=== PATIENT | female | born 1990 | race Caucasian/White ===

== ENCOUNTER 2016-09-15 19:26 | Emergency (ER) | payer OTHER ==
[2016-09-15 19:32] VITALS: BP 147/90; BMI 36.6
--- NOTE | 2016-09-15 21:04 | DR.GENAD ---
HPI - PCP Primary Care Physician: KALE BARNETT - Complaint/Symptoms Chief Complaint Doctors Comments: Patient is seen frequently for migraine headache, always at night. In no acute distress. Chief Complaint:: PT C/O N/V HEADACHE AND DIZZINESS - Source History Provided: Patient - Mode of Arrival Mode of Arrival: Ambulatory - Timing Onset of Chief Complaint: 09/15/16 PMH - PMH Past Medical History: Yes Past Medical History: Anemia, Anxiety, Asthma, Depression, Diabetes, Migraines, Hypertension Past Surgical History: Yes Surgical History: , Cholecystectomy, TIE SAW[employer]ER Surgery, 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, Tonsillectomy - Family History History of Family Medical Conditions: Yes Family Medical History: Diabetes Mellitus, Hypertension - Social History Type of Tobacco Use: Cigarettes Does any household member use tobacco: No Alcohol Use: None Do you use any recreational Drugs:: No Lives With: Family Lives Where: Home - infectious screening In the last 2 months have you had wt loss of >10#?: NO Have you had fever, night sweats or hemotysis?: No Have you traveled outside the country in the last 6 months?: No Isolation: Standard ROS - Review of Systems Constitutional: No Symptoms Reported Eyes: No Symptoms Reported ENTM: No Symptoms Reported Respiratoy: No Symptoms Reported Cardiovascular: No Symptoms Reported Gastrointestinal/Abdominal: No Symptoms Reported Genitourinary: No Symptoms Reported Neurological: No Symptoms Reported Musculoskeletal: No Symptoms Reported Integumentary: No Symptoms Reported Hematologic/Lymphatic: No Symptoms Reported Endocrine: No Symptoms Reported Psychiatric: No Symptoms Reported All Other Systems: Reviewed and Negative PE - Vital Signs Vitals: Temperature 98.6 F Pulse Rate 91 Respiratory Rate 18 Blood Pressure [Right Arm] 105/65 Blood Pressure [Left Arm] 147/91 Blood Pressure 147/90 O2 Sat by Pulse Oximetry 100 - General Limitations: No Limitations General Appearance: Alert, In No Apparent Distress - Head Head Exam: Normal Inspection, Atraumatic - Eyes Eye exam: Normal Appearance, PERRL, EOMI - ENT ENT Exam: Normal Exam, Normal Oropharynx External Ear Exam: Normal External Inspection TM/Canal Exam: Bilateral Normal Nose Exam: Normal Nose Exam Mouth Exam: Normal Inspection Throat Exam: Normal Inspection - Neck Neck Exam: Normal Inspection - Chest Chest Inspection: Normal Inspection - Respiratory Respiratory Exam: Normal Lung Sounds Bilat Respiratory Exam: Bilateral Clear to Auscultation - Cardiovascular Cardiovascular Exam: Regular Rate, Normal Rhythm - Abdominal Exam Abdominal Exam: Normal Inspection Abdominal Tenderness: negative: RUQ, RLQ, LUQ, LLQ, Epigastrium, Suprapubic, Diffuse, Mild, Moderate, Severe, Other - Extremities Extremities Exam: Normal Inspection, Full ROM - Back Back Exam: Normal Inspection, Full ROM - Neurologic Neurological Exam: Alert, Oriented X3, CN II-XII Intact - Psychiatric Psychiatric Exam: Normal Affect, Normal Mood - Skin Skin Exam: Warm, Dry, Intact - Diagnosis Discharge Problem: Migraine Qualifiers: Migraine type: with aura Status migrainosus presence: without status migrainosus Intractability: not intractable Qualified Code(s): G43.109 - Migraine with aura, not intractable, without status migrainosus - Discharge Plan Condition: Stable - Follow ups/Referrals Follow ups/Referrals: KALE BARNETT [Primary Care Provider] - 3 days - Instructions Instructions: Nausea, Adult, Migraine Headache
[2016-09-15] MEDS ORDERED: NS 500 ML IV 500 ML IV ONE ×2 (21:06→21:16)
[2016-09-15] MEDS ORDERED: TORADOL 30 MG VIAL IVP ONE (21:06)
[2016-09-15] MEDS ORDERED: PHENERGAN INJ 25 MG IV ONE (21:06)
[2016-09-15] MEDS ORDERED: DECADRON INJ IV ONE (21:06)
[2016-09-15] MEDS ORDERED: NUBAIN INJ 10 IVP ONE (21:13)
[2016-09-15] MEDS ORDERED: NUBAIN INJ 10 ONE (21:15)
[2016-09-15] MEDS ORDERED: PHENERGAN INJ 25 MG ONE (21:15)
== END 2016-09-15 22:10 | disposition home or self-care (01) ==
LOC: ER 19:26
DX: G43.109 Migraine with aura, not intractable, without status migrainosus (principal)
CPT/HCPCS: 96365; 96374; 96375; 99282; 99283; A4222; J1100; J2300; J2550

== ENCOUNTER 2016-10-24 12:39 | Emergency (ER) | payer OTHER ==
[2016-10-24 12:49] VITALS: BP 141/97; BMI 37.8
[2016-10-24] MEDS ORDERED: REGLAN INJ 10 MG VIAL IVP STA (13:44)
[2016-10-24] MEDS ORDERED: BENADRYL INJ 50 MG VIAL IVP STA (13:44)
--- NOTE | 2016-10-24 13:49 | DR.GENAD ---
HPI - PCP Primary Care Physician: rodney - Complaint/Symptoms Chief Complaint Doctors Comments: Patient states she has had a migraine headache since earlier today and has been having lower abdominal pain with bloody diarrhea x4 today with diarrhea since yesterday. States she has a history of Chronn Disease and was in the hospital last year with same problem. States she has been having rectal burning from using the bathroom so much and blood when she wipes. She denies fever, chills, cold, cough, chest pain or SOB. States she smokes 1/2 pack daily and has had a hysterectomy. She denies alcohol or drug usage. States she took a Reglan about four hours ago and it did not help her headache. Chief Complaint:: patient stated at 4 am her head started hurting with a migraine, and 3 days ago her abd started hurting like it does when her chrones flares up. - Nurses notes reviewed Nurses Notes Review: Yes - Source History Provided: Patient - Mode of Arrival Mode of Arrival: Ambulatory - Timing Onset of Chief Complaint: 10/21/16 Came on: Gradually - Duration Duration: Constant How lon Duration: Days - Location Location: lower abdominal pain - Severity Severity: Moderate, Severe - Modifying Factors Worsens:: nothing Improves:: nothing PMH - PMH Past Medical History: Yes Past Medical History: Anemia, Anxiety, Asthma, Depression, Diabetes, Migraines, Hypertension Past Surgical History: Yes Surgical History: , Cholecystectomy, [employer] Surgery, 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, Tonsillectomy - Family History History of Family Medical Conditions: Yes Family Medical History: Diabetes Mellitus, Hypertension - Social History Does patient currently use any type of tobacco product: Yes Have you used tobacco products in the last 12 months: Yes Type of Tobacco Use: Cigarettes How many years tobacco product used: 15 Does any household member use tobacco: No Alcohol Use: None Do you use any recreational Drugs:: No Lives With: Family Lives Where: Home - infectious screening In the last 2 months have you had wt loss of >10#?: NO Have you had fever, night sweats or hemotysis?: No Have you traveled outside the country in the last 6 months?: No Isolation: Standard ROS - Review of Systems Constitutional: No Symptoms Reported Eyes: No Symptoms Reported ENTM: No Symptoms Reported Respiratoy: No Symptoms Reported Cardiovascular: No Symptoms Reported Gastrointestinal/Abdominal: Abdominal Pain, Diarrhea, Nausea Genitourinary: No Symptoms Reported. negative: See HPI, Discharge, Dysuria, Frequency, Hematuria, Pain, Bleeding, Other Neurological: No Symptoms Reported, Headache. negative: See HPI, Anxiety, Depressed, Emotional Problems, Numbness, Paresthesia, Pre-existing Deficit, Seizure, Tingling, Tremors, Weakness, Dizziness, Problems Walking, Speech Problem, Other Musculoskeletal: No Symptoms Reported Integumentary: No Symptoms Reported Hematologic/Lymphatic: No Symptoms Reported Endocrine: No Symptoms Reported Psychiatric: No Symptoms Reported PE - Vital Signs Vitals: Temperature 97.8 F Pulse Rate 120 Respiratory Rate 16 Blood Pressure [Right Arm] 105/65 Blood Pressure [Left Arm] 147/91 Blood Pressure 141/97 O2 Sat by Pulse Oximetry 97 - General Limitations: No Limitations General Appearance: Alert, In Distress (moderate distress) - Head Head Exam: Normal Inspection, Atraumatic, Normocephalic - Eyes Eye exam: Normal Appearance, PERRL, EOMI. negative: Scleral Icterus, Conjunctival Injection, Nystagmus, Miosis, Mydrasis, Periorbital Swelling, Periorbital Tenderness, Other - ENT ENT Exam: Normal Exam, Normal Oropharynx, Normal External Ear Exam, Mucous Membranes Moist, TM's Normal Bilaterally External Ear Exam: Normal External Inspection TM/Canal Exam: Bilateral Normal Nose Exam: Normal Nose Exam Mouth Exam: Normal Inspection Throat Exam: Normal Inspection. negative: Tonsillar Erythema, Tonsillomegaly, Tonsillar Exudate, R Peritonsillar Mass, L Peritonsillar Mass, Muffled Voice, Other - Neck Neck Exam: Normal Inspection, Full ROM, Trachea Midline. negative: Tenderness, Meningismus, Lymphadenopathy, Thyromegaly, Other - Chest Chest Inspection: Normal Inspection, Symmetric Chest Wall Rise - Respiratory Respiratory Exam: Normal Lung Sounds Bilat Respiratory Exam: Bilateral Clear to Auscultation - Cardiovascular Cardiovascular Exam: Regular Rate, Normal Rhythm, Normal Heart Sounds - Abdominal Exam Abdominal Exam: Normal Inspection, Normal Bowel Sounds, Soft, Tenderness, Guarding (suprapubic tendeness), Dimnished Bowel Sounds Abdominal Tenderness: Suprapubic, Moderate - Extremities Extremities Exam: Normal Inspection, Full ROM, Normal Capillary Refill. negative: Tenderness, Edema, Joint Swelling, Calf Tenderness, Other - Back Back Exam: Normal Inspection, Full ROM. negative: Tenderness, (R) CVA Tenderness, (L) CVA Tenderness, Muscle Spasm, Paraspinal Tenderness, Vertebral Tenderness, Rashes, (R) Sciatic Notch Tenderness, (L) Sciatic Notch Tendern, (R ) Straight Leg Raise, (L) Straight Leg Raise, Other - Neurologic Neurological Exam: Alert, Oriented X3, CN II-XII Intact, Reflexes Normal. negative: Normal Gait (gait not tested) - Psychiatric Psychiatric Exam: Normal Affect, Normal Mood. negative: Depressed, Agitated, Anxious, Flat Affect, Manic, Homicidal Ideation, Suicidal Ideation, Other - Skin Skin Exam: Warm, Dry, Intact, Normal Color ROR - Labs Reviewed Laboratory Results Reviewed?: Yes (all labs and x-ay results reviewed and discussed with patient) Result Diagrams: 10/24/16 13:53 10/24/16 13:53 Laboratory: WBC 6.8 X10^3/uL (3.6-10.0) 10/24/16 13:53 RBC 4.17 X10^6/uL (3.5-5.4) 10/24/16 13:53 Hgb 12.6 g/dL (12.0-16.0) 10/24/16 13:53 Hct 36.8 % (36.0-47.0) 10/24/16 13:53 MCV 88.3 fL (80.0-100.0) 10/24/16 13:53 MCH 30.3 pg (27.0-34.0) 10/24/16 13:53 MCHC 34.3 g/dL (33.0-35.0) 10/24/16 13:53 RDW 13.0 % (11.6-16.5) 10/24/16 13:53 Plt Count 275 X10^3/uL (150.0-450.0) 10/24/16 13:53 MPV 7.2 fL (7.4-11.0) L 10/24/16 13:53 Neut % 46.6 % (42.0-75.0) 10/24/16 13:53 Lymph % 41.8 % (21.0-51.0) 10/24/16 13:53 [place] % 9.3 % (0.0-13.0) 10/24/16 13:53 Eos % 1.9 % (0.9-2.9) 10/24/16 13:53 Baso % 0.4 % (0.2-1.0) 10/24/16 13:53 Neut # 3.2 x10^3/uL (2.2-4.8) 10/24/16 13:53 Lymph # 2.8 X10^3/uL (1.3-2.9) 10/24/16 13:53 [place] # 0.6 x10^3/uL (0.3-0.8) 10/24/16 13:53 Eos # 0.1 x10^3/uL (0.0-0.2) 10/24/16 13:53 Baso # 0.0 X10^3/uL (0.0-0.1) 10/24/16 13:53 Absolute Nucleated RBC 0.0 /100WBC 10/24/16 13:53 Sodium 145 mmol/L (136-145) 10/24/16 13:53 Corrected Sodium TNP 10/24/16 13:53 Potassium 3.6 mmol/L (3.5-5.1) 10/24/16 13:53 Chloride 108 mmol/L (98-107) H 10/24/16 13:53 Carbon Dioxide 31.7 mmol/L (21-32) 10/24/16 13:53 BUN 14 mg/dL (7-18) 10/24/16 13:53 Creatinine 0.92 mg/dL (0.55-1.02) 10/24/16 13:53 Est GFR (MDRD) Af Amer > 60 (>60) 10/24/16 13:53 Est GFR (MDRD) Non-Af > 60 (>60) 10/24/16 13:53 Glucose 95 mg/dL (65-99) 10/24/16 13:53 Calcium 8.7 mg/dL (8.5-10.1) 10/24/16 13:53 Corrected Calcium TNP 10/24/16 13:53 Total Bilirubin 0.30 mg/dL (0.2-1.0) 10/24/16 13:53 AST 60 Units/L (15-37) H 10/24/16 13:53 ALT 82 Units/L (12-78) H 10/24/16 13:53 Alkaline Phosphatase 74 Units/L (46-116) 10/24/16 13:53 Total Protein 7.7 g/dL (6.4-8.2) 10/24/16 13:53 Albumin 3.7 g/dL (3.4-5.0) 10/24/16 13:53 Globulin 4.0 g/dL (2.5-4.5) 10/24/16 13:53 Albumin/Globulin Ratio 0.9 Ratio (1.1-2.1) L 10/24/16 13:53 Amylase 44 Units/L (25-115) 10/24/16 13:53 Lipase 163 Units/L (73-393) 10/24/16 13:53 - XRAY XRAY Interpreted by: Radiologist (CT abdomen/pelvis: No evidence acute colitis, bowel obstruction, free air or enteritis. Diffuse hepatic steatosis) - Diagnosis Discharge Problem: Abdominal pain, Hepatic steatosis Crohn's disease Qualifiers: Gastrointestinal tract location: unspecified location Headache Qualifiers: Headache chronicity pattern: chronic headache - Discharge Plan Disposition: HOME, SELF-CARE Condition: Stable Prescriptions: Metronidazole [FLAGYL 500 MG *] 500 mg PO BID #14 tab Prednisone 40 mg PO QAM #5 tab - Follow ups/Referrals Follow ups/Referrals: KALE BARNETT [Primary Care Provider] - 3 days - Instructions Instructions: Crohn Disease, Abdominal Pain, Adult, [id number], General Headache Without Cause, [id number]
[2016-10-24 13:56] LABS: BASOPHILS % (AUTO) 0.4 % (0.2-1.0); EOSINOPHILS # (AUTO) 0.1 x10^3/uL (0.0-0.2); EOSINOPHILS % (AUTO) 1.9 % (0.9-2.9); HEMATOCRIT 36.8 % (36.0-47.0); HEMOGLOBIN 12.6 g/dL (12.0-16.0); LYMPHOCYTES # (AUTO) 2.8 X10^3/uL (1.3-2.9); LYMPHOCYTES % (AUTO) 41.8 % (21.0-51.0); MEAN CORPUSCULAR HEMOGLOBIN 30.3 pg (27.0-34.0); MEAN CORPUSCULAR HGB CONC 34.3 g/dL (33.0-35.0); MEAN CORPUSCULAR VOLUME 88.3 fL (80.0-100.0); MEAN PLATELET VOLUME 7.2 fL (7.4-11.0); MONOCYTES # (AUTO) 0.6 x10^3/uL (0.3-0.8); MONOCYTES % (AUTO) 9.3 % (0.0-13.0); NEUTROPHILS # (AUTO) 3.2 x10^3/uL (2.2-4.8); NEUTROPHILS % (AUTO) 46.6 % (42.0-75.0); PLATELET COUNT 275 X10^3/uL (150.0-450.0); RED BLOOD COUNT 4.17 X10^6/uL (3.5-5.4); WHITE BLOOD COUNT 6.8 X10^3/uL (3.6-10.0)
[2016-10-24] MEDS ORDERED: BENADRYL INJ 50 MG VIAL ONE (13:57)
[2016-10-24] MEDS ORDERED: REGLAN INJ 10 MG VIAL ONE (13:57)
[2016-10-24 14:08] LABS: ALANINE AMINOTRANSFERASE 82 Units/L (12-78); ALBUMIN 3.7 g/dL (3.4-5.0); ALKALINE PHOSPHATASE 74 Units/L (46-116); AMYLASE 44 Units/L (25-115); ASPARTATE AMINO TRANSFERASE 60 Units/L (15-37); BLOOD UREA NITROGEN 14 mg/dL (7-18); CALCIUM 8.7 mg/dL (8.5-10.1); CARBON DIOXIDE 31.7 mmol/L (21-32); CHLORIDE 108 mmol/L (98-107); CREATININE 0.92 mg/dL (0.55-1.02); GLUCOSE 95 mg/dL (65-99); LIPASE 163 Units/L (73-393); SODIUM 145 mmol/L (136-145); TOTAL PROTEIN 7.7 g/dL (6.4-8.2); eGFR BLACK RACES > 60 (>60); eGFR NON BLACK RACES > 60 (>60)
[2016-10-24] MEDS ORDERED: DEMEROL INJ IVP ONE (14:19)
[2016-10-24] MEDS ORDERED: ZOFRAN INJ 4 MG VIAL IVP ONE (14:19)
[2016-10-24] MEDS ORDERED: ZOFRAN INJ 4 MG VIAL ONE (14:20)
[2016-10-24] MEDS ORDERED: DEMEROL INJ ONE (14:20)
--- NOTE | 2016-10-24 14:38 | CT ---
History: Bloody diarrhea. History of Crohn's disease. Exam: Non-contrast CT examination of the abdomen \T\ pelvis. Technique: Multiple CT images of the abdomen and pelvis were obtained from the lung bases to the pub ic symphysis without the IV administration of radiopaque contrast. Findings: The lung bases are clear. The heart is normal in size without a pericardial effusion. The adrenal gl ands and spleen are unremarkable on these non contrasted images. There is no pneumoperitoneum or hem operitoneum seen. There is no bowel obstruction, large hernia defect, or acute mesenteric inflammato ry change. There is no evidence for an acute colitis, diverticulitis, or RLQ inflammatory stranding. No loculated intraperitoneal fluid collection is seen. Exam of the kidneys demonstrates no obstruct ing renal stones. No other renal, bladder, or abdominopelvic abnormalities are seen. No lytic bony l esions or acute fractures are seen. There is diffuse hepatic steatosis appreciated without liver abs cess observed. The patient is status post cholecystectomy. Impression: No convincing evidence for acute colitis, bowel obstruction, free air, or enteritis, although this e xamination is admittedly limited without the benefit of IV and oral contrast in this patient w/ Croh n's disease. Diffuse hepatic steatosis. Status post cholecystectomy. No acute mesenteric hematoma or inflammatory stranding is otherwise seen. No drainable fluid collection, bowel wall pneumatosis, po rtal venous gas, or free peritoneal air observed. Reported By:
== END 2016-10-24 15:21 | disposition home or self-care (01) ==
LOC: ER 12:51
DX: K50.90 Crohn's disease, unspecified, without complications (principal); E88.89 Other specified metabolic disorders; R10.84 Generalized abdominal pain; R51 Headache
CPT/HCPCS: 36415; 74176; 80053; 82150; 83690; 85025; 96365; 96374; 96375; 99283; A4216; A4222; J1200; J2175; J2405; J2765

== ENCOUNTER 2016-10-31 21:17 | Emergency (ER) | payer OTHER ==
[2016-10-31 21:29] VITALS: BMI 37.8
[2016-10-31] MEDS ORDERED: DEMEROL INJ IM ONE (21:48)
[2016-10-31] MEDS ORDERED: PHENERGAN INJ 25 MG IM ONE (21:48)
--- NOTE | 2016-10-31 21:54 | DR.GENAD ---
HPI - PCP Primary Care Physician: Kale Barnett - Complaint/Symptoms Chief Complaint Doctors Comments: Patient states she had oral surgery four days ago with two teeth removed and reguiring stitches by Dr. Sánchez in [place] and she is taking Motrin 800mg; Leonard 10/325 with Amoxicillin and steriods but it does not seem to control her pain after eating a hot dog tonight she felt a pop in her jaw with severe pain in the left side of her jaw. States she tried to get in touch with the oral surgeon two days ago but not since. she denies fever , chills, cold, cough, nausea or vomiting. States she has a history of Migraines and she comes to this emergency room and they usually give her Dilaudid, Demerol or Nubain. States she is allegic to Morphine and Toradol. States she has had a hysterectomy. Chief Complaint:: Had oral surgery on Wednesday and i was tring to eat a hotdog and heard something pop and a gush of pain ran down my neck. I had two back teeth cut out and i think he did some scrapping on the bone. Self Treatment fo Chief Complaint: 800mg motrin @2029. Leonard 10/325 @1999 - Nurses notes reviewed Nurses Notes Review: Yes - Source History Provided: Patient - Mode of Arrival Mode of Arrival: Ambulatory - Timing Onset of Chief Complaint: 10/31/16 Came on: Gradually - Duration Duration: Intermittent How lon Duration: Days - Modifying Factors Worsens:: chewing Improves:: nothing PMH - PMH Past Medical History: Yes Past Medical History: Anemia, Anxiety, Asthma, Depression, Diabetes, Migraines, Hypertension Past Surgical History: Yes Surgical History: , Cholecystectomy, [employer] Surgery, 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, Tonsillectomy - Family History History of Family Medical Conditions: Yes Family Medical History: Diabetes Mellitus, Hypertension - Social History Alcohol Use: None Do you use any recreational Drugs:: No Lives With: Family Lives Where: Home - infectious screening Have you traveled outside the country in the last 6 months?: No ROS - Review of Systems Constitutional: No Symptoms Reported Eyes: No Symptoms Reported ENTM: No Symptoms Reported, Mouth Pain Respiratoy: No Symptoms Reported. negative: See HPI, Productive Cough, Non- Productive Cough, Moist Cough, Dry Cough, Hacking Cough, Barking Cough, Brassy Cough, Orthopnea, Short of Breath, Stridor, Wheezing, Hemoptysis, Other Cardiovascular: No Symptoms Reported Gastrointestinal/Abdominal: No Symptoms Reported Genitourinary: No Symptoms Reported Neurological: No Symptoms Reported Musculoskeletal: No Symptoms Reported Integumentary: No Symptoms Reported Hematologic/Lymphatic: No Symptoms Reported Endocrine: No Symptoms Reported Psychiatric: No Symptoms Reported PE - Vital Signs Vitals: Temperature 98.7 F Pulse Rate 96 Respiratory Rate 18 Blood Pressure [Right Arm] 105/65 Blood Pressure [Left Arm] 147/91 Blood Pressure 159/102 O2 Sat by Pulse Oximetry 98 - General Limitations: No Limitations General Appearance: Alert, In Distress (slight stress) - Head Head Exam: Normal Inspection, Atraumatic, Normocephalic (left molar left bottom with suture intact with left upper molar with suture intact with no erythema or discharge) - Eyes Eye exam: Normal Appearance, PERRL, EOMI. negative: Scleral Icterus, Conjunctival Injection, Nystagmus, Miosis, Mydrasis, Periorbital Swelling, Periorbital Tenderness, Other - ENT ENT Exam: Normal Exam, Normal Oropharynx, Normal External Ear Exam, Mucous Membranes Moist, TM's Normal Bilaterally External Ear Exam: Normal External Inspection TM/Canal Exam: Bilateral Normal Nose Exam: Normal Nose Exam Mouth Exam: Normal Inspection Throat Exam: Normal Inspection - Neck Neck Exam: Normal Inspection, Full ROM, Trachea Midline. negative: Tenderness, Meningismus, Lymphadenopathy, Thyromegaly, Other - Chest Chest Inspection: Normal Inspection, Symmetric Chest Wall Rise. negative: Tenderness, Rash, Abscess, Other - Respiratory Respiratory Exam: Normal Lung Sounds Bilat Respiratory Exam: Bilateral Clear to Auscultation - Cardiovascular Cardiovascular Exam: Regular Rate, Normal Rhythm, Normal Heart Sounds. negative : Bradycardia, Tachycardia, Irregular Rhythm, Systolic Murmur, Diastolic Murmur , Rubs, Gallop, Clicks, JVD, +S1, +S2, +S3, +S4, Other - Abdominal Exam Abdominal Exam: Normal Inspection, Normal Bowel Sounds, Soft. negative: Distention, Tenderness, Guarding, Rebound, Rigidity, Dimnished Bowel Sounds, Hyperactive Bowel Sounds, Hypoactive Bowel Sounds, Organomegaly, Trauma, Incision, Ascites, Mass, Bruit, Pulsatile Mass, Hernia, Other Abdominal Tenderness: negative: RUQ, RLQ, LUQ, LLQ, Epigastrium, Suprapubic, Diffuse, Mild, Moderate, Severe, Other - Extremities Extremities Exam: Normal Inspection, Full ROM, Normal Capillary Refill. negative: Tenderness, Edema, Joint Swelling, Calf Tenderness, Other - Back Back Exam: Normal Inspection, Full ROM - Neurologic Neurological Exam: Alert, Oriented X3, CN II-XII Intact, Normal Gait, Reflexes Normal - Psychiatric Psychiatric Exam: Normal Affect, Normal Mood - Skin Skin Exam: Warm, Dry, Intact, Normal Color. negative: Rash, Cyanosis, Diaphoresis, Erythema, Pallor, Mottled, Other ROR - Labs Reviewed Laboratory Results Reviewed?: Yes (All x-ray results reviewed and discussed with patient) - XRAY XRAY Interpreted by: Radiologist (CT maxillofacial: Surgical defects from both left maxillary and mandibular moral extraction. No evidence of significant inflammatory change or abscess formation) - Diagnosis Discharge Problem: Pain, dental, dental extraction, Sprain of jaw, left side, initial encounter - Discharge Plan Disposition: 01 HOME, SELF-CARE Condition: Stable - Follow ups/Referrals Follow ups/Referrals: KALE BARNETT [Primary Care Provider] - 3 days - Instructions Instructions: Dental Pain, Dental Extraction, Care After, Hypertension
[2016-10-31] MEDS ORDERED: PHENERGAN INJ 25 MG ONE (21:57)
[2016-10-31] MEDS ORDERED: DEMEROL INJ ONE (21:57)
--- NOTE | 2016-10-31 22:33 | CT ---
STUDY: MAXILLOFACIAL CT History: Left jaw pain. Dental surgery on Wednesday. Comparison: Head CT from February 21, 2016. Technique: Multiple axial images of the facial structures were obtained from the mandible to superio r portions of the orbits. Coronal and sagittal reformatted images were performed and reviewed. Autom ated exposure control (AEC) was utilized to adjust the MA and/or kV. Findings: Axial images: Both orbits are normal appearance. There is no evidence of preseptal or postseptal periorbital soft tissue swelling. The paranasal sinuses are predominately clear bilaterally. The nasal bone is intact . The zygomaticomaxillary complexes are normal appearance bilaterally. The right orbit is intact. Th ere is a hit defect in the left maxillary alveolar ridge from 2nd left maxillary molar extraction. T here is an additional defect in the left mandible from left 2nd mandibular molar extraction. No sign ificant soft tissue abnormality is identified. There is no evidence of abscess formation or signific ant abnormal inflammatory change. There is a metallic foreign body in the tongue. Reformatted images: The ethmoid roofs are symmetric. The lamina papyracea appear intact bilaterally. There is no evidence of orbital blowout. The ostiomeatal units are predominately clear. Both temporomandibular joints are intact. IMPRESSION: Surgical defects from of both left maxillary and mandibular molar extraction. No evidence of signifi cant inflammatory change or abscess formation at this time. Reported By:
[2016-10-31] MEDS ORDERED: CATAPRES TAB 0.2 MG PO ONE (22:50)
[2016-10-31] MEDS ORDERED: CATAPRES TAB 0.2 MG ONE (22:52)
[2016-10-31 23:16] VITALS: BP 160/98
== END 2016-10-31 23:16 | disposition home or self-care (01) ==
LOC: ER 21:17
DX: S03.42XA Sprain of jaw, left side, initial encounter (principal); K08.89 Other specified disorders of teeth and supporting structures; K08.409 Partial loss of teeth, unspecified cause, unspecified class; Y33.XXXA Other specified events, undetermined intent, initial encounter; Y92.9 Unspecified place or not applicable
CPT/HCPCS: 70486; 96372; 99283; J2175; J2550

== ENCOUNTER 2016-12-21 18:25 | Emergency (ER) | payer SELFPAY ==
[2016-12-21 18:32] VITALS: BP 151/95; BMI 36.6
[2016-12-21] MEDS ORDERED: HALDOL INJ IM ONE (20:59)
--- NOTE | 2016-12-21 21:02 | DR.GENAD ---
HPI - PCP Primary Care Physician: Kale Cross - Complaint/Symptoms Chief Complaint:: "For about 2 days now I have been having a migraine and have been throwing up. I haven't been able to drink or eat anything without throwing up. I took 2 [place]'s last night and 1 a little earlier and it has not helped. I' m having blurriness as well." Self Treatment fo Chief Complaint: 2 [place] yesterday. 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, 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, Tonsillectomy - Family History History of Family Medical Conditions: Yes Family Medical History: Diabetes Mellitus, Hypertension - Social History Does patient currently use any type of tobacco product: No Have you used tobacco products in the last 12 months: No Type of Tobacco Use: Cigarettes Does any household member use tobacco: No Alcohol Use: None Do you use any recreational Drugs:: No Lives With: Family Lives Where: Home - infectious screening In the last 2 months have you had wt loss of >10#?: NO Have you had fever, night sweats or hemotysis?: No Have you traveled outside the country in the last 6 months?: No Isolation: Standard ROS - Review of Systems Constitutional: No Symptoms Reported Eyes: Photophobia ENTM: No Symptoms Reported Respiratoy: No Symptoms Reported Cardiovascular: No Symptoms Reported Gastrointestinal/Abdominal: Nausea Genitourinary: No Symptoms Reported Neurological: No Symptoms Reported Musculoskeletal: No Symptoms Reported Integumentary: No Symptoms Reported Hematologic/Lymphatic: No Symptoms Reported Endocrine: No Symptoms Reported Psychiatric: No Symptoms Reported All Other Systems: Reviewed and Negative PE - Vital Signs Vitals: Temperature 98.4 F Pulse Rate 133 Respiratory Rate 18 Blood Pressure [Right Arm] 105/65 Blood Pressure [Left Arm] 160/98 Blood Pressure 151/95 O2 Sat by Pulse Oximetry 96 - General Limitations: No Limitations General Appearance: Alert, In No Apparent Distress - Head Head Exam: Normal Inspection - Eyes Eye exam: Normal Appearance, EOMI. negative: Scleral Icterus, Conjunctival Injection - ENT ENT Exam: Normal Exam External Ear Exam: Normal External Inspection Mouth Exam: Normal Inspection Throat Exam: Normal Inspection, Tonsillar Erythema - Neck Neck Exam: Normal Inspection, Full ROM, Trachea Midline - Chest Chest Inspection: Normal Inspection, Symmetric Chest Wall Rise, Tenderness - Respiratory Respiratory Exam: Normal Lung Sounds Bilat. negative: Accessory Muscle Use, Respiratory Distress - Cardiovascular Cardiovascular Exam: Regular Rate - Back Back Exam: Normal Inspection - Neurologic Neurological Exam: Alert, Oriented X3, CN II-XII Intact - Psychiatric Psychiatric Exam: Normal Affect, Normal Mood, Depressed - Skin Skin Exam: Intact, Normal Color ROR - Labs Reviewed Laboratory: Specimen Type Clean catch urine 12/21/16 21:50 Urine Color Yellow (YELLOW) 12/21/16 21:50 Urine Appearance Slightly hazy (CLEAR) 12/21/16 21:50 Urine pH 6.0 (5.0 - 8.0) 12/21/16 21:50 Ur Specific Mosier 1.025 (1.000-1.030) 12/21/16 21:50 Urine Protein 1+ (NEGATIVE) 12/21/16 21:50 Urine Glucose (UA) Negative (NEGATIVE) 12/21/16 21:50 Urine Ketones Negative (NEGATIVE) 12/21/16 21:50 Urine Occult Blood Negative (NEGATIVE) 12/21/16 21:50 Urine Nitrite Negative (NEGATIVE) 12/21/16 21:50 Urine Bilirubin Negative (NEGATIVE) 12/21/16 21:50 Urine Urobilinogen Normal (NORMAL) 12/21/16 21:50 Ur Leukocyte Esterase Negative (NEGATIVE) 12/21/16 21:50 Urine RBC 0-3 /HPF (NEGATIVE) 12/21/16 21:50 Urine WBC 0-3 /HPF (NEGATIVE) 12/21/16 21:50 Ur Squamous Epith Cells Moderate /HPF (NEGATIVE) 12/21/16 21:50 Urine Bacteria Trace /HPF (NEGATIVE) 12/21/16 21:50 Urine Mucus Moderate /HPF (NEGATIVE) 12/21/16 21:50 Ur Culture Indicated? No/not indicated 12/21/16 21:50 Urine Opiates Screen Negative (NEG=<300) 12/21/16 21:50 Urine Methadone Screen Negative (NEG=<300) 12/21/16 21:50 Ur Barbiturates Screen Negative (NEG=<200) 12/21/16 21:50 Ur Phencyclidine Scrn Negative (NEG=<25) 12/21/16 21:50 Ur Amphetamines Screen Positive (NEG=<1000) A 12/21/16 21:50 U Benzodiazepines Scrn Positive (NEG=<200) A 12/21/16 21:50 Urine Cocaine Screen Negative (NEG=<300) 12/21/16 21:50 U Marijuana (THC) Screen Negative (NEG=<50) 12/21/16 21:50 - Diagnosis Discharge Problem: Headache Qualifiers: Headache type: unspecified Headache chronicity pattern: acute headache Intractability: not intractable Qualified Code(s): R51 - Headache - Discharge Plan Condition: Stable - Follow ups/Referrals Follow ups/Referrals: KALE BARNETT [Primary Care Provider] - 3 days - Instructions
[2016-12-21] MEDS ORDERED: ZOFRAN TAB 4 MG PO ONE (21:06)
[2016-12-21] MEDS ORDERED: HALDOL INJ ONE (21:11)
[2016-12-21] MEDS ORDERED: ZOFRAN TAB 4 MG ONE (21:11)
[2016-12-21] MEDS ORDERED: PHENERGAN INJ 25 MG IM ONE (21:22)
[2016-12-21] MEDS ORDERED: NUBAIN INJ 10 IM ONE (21:22)
[2016-12-21] MEDS ORDERED: NUBAIN INJ 10 ONE (21:31)
[2016-12-21] MEDS ORDERED: PHENERGAN INJ 25 MG ONE (21:31)
[2016-12-21 22:10] LABS: BILIRUBIN,URINE NEGATIVE (NEGATIVE); BLOOD/HEMOGLOBIN,URINE NEGATIVE (NEGATIVE); GLUCOSE, URINE NEGATIVE (NEGATIVE); KETONES,URINE NEGATIVE (NEGATIVE); LEUKOCYTE ESTERASE ,URINE NEGATIVE (NEGATIVE); NITRITES,URINE NEGATIVE (NEGATIVE); PROTEIN,URINE 1+ (NEGATIVE); UROBILINOGEN,URINE NORMAL (NORMAL)
[2016-12-21 22:19] LABS: APPEARANCE,URINE SLIGHTLY HAZY (CLEAR); BACTERIA,URINE TRACE /HPF (NEGATIVE); COLOR,URINE YELLOW (YELLOW); MUCUS,URINE MODERATE /HPF (NEGATIVE); RBC,URINE 0-3 /HPF (NEGATIVE); SQUAMOUS EPITHELIAL CELL,UR MODERATE /HPF (NEGATIVE)
== END 2016-12-21 22:28 | disposition home or self-care (01) ==
LOC: ER 18:37
DX: R51 Headache (principal)
CPT/HCPCS: 80307; 81001; 96372; 99282; S0181; G0434; J1630; J2300; J2550

== ENCOUNTER 2016-12-28 19:55 | Emergency (ER) | payer SELFPAY ==
[2016-12-28 20:01] VITALS: BP 157/95; BMI 36.6
--- NOTE | 2016-12-28 21:41 | DR.GENAD ---
HPI - PCP Primary Care Physician: KALE BARNETT - Complaint/Symptoms Chief Complaint Doctors Comments: Patient is a frequent visitor of the ED for migraine management. She is followed by a neurologit in [place]; she has a propensity of nubane. 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, 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, Tonsillectomy - Family History History of Family Medical Conditions: Yes Family Medical History: Diabetes Mellitus, Hypertension - Social History Type of Tobacco Use: Cigarettes Alcohol Use: None Do you use any recreational Drugs:: No Lives With: Family Lives Where: Home - infectious screening Have you traveled outside the country in the last 6 months?: No Isolation: Standard ROS - Review of Systems Eyes: No Symptoms Reported ENTM: No Symptoms Reported Respiratoy: No Symptoms Reported Cardiovascular: No Symptoms Reported Gastrointestinal/Abdominal: No Symptoms Reported Genitourinary: No Symptoms Reported Neurological: No Symptoms Reported Musculoskeletal: No Symptoms Reported Integumentary: No Symptoms Reported Hematologic/Lymphatic: No Symptoms Reported Endocrine: No Symptoms Reported Psychiatric: No Symptoms Reported All Other Systems: Reviewed and Negative PE - Vital Signs Vitals: Temperature 98.4 F Pulse Rate 100 Respiratory Rate 20 Blood Pressure [Right Arm] 105/65 Blood Pressure [Left Arm] 160/98 Blood Pressure 157/95 O2 Sat by Pulse Oximetry 99 - General General Appearance: Alert, In No Apparent Distress - Head Head Exam: Normal Inspection, Atraumatic - Eyes Eye exam: Normal Appearance, PERRL, EOMI - ENT ENT Exam: Normal Exam External Ear Exam: Normal External Inspection TM/Canal Exam: Bilateral Normal Nose Exam: Normal Nose Exam Mouth Exam: Normal Inspection Throat Exam: Normal Inspection - Neck Neck Exam: Normal Inspection - Chest Chest Inspection: Normal Inspection - Respiratory Respiratory Exam: Normal Lung Sounds Bilat Respiratory Exam: Bilateral Clear to Auscultation - Cardiovascular Cardiovascular Exam: Regular Rate, Normal Rhythm - Abdominal Exam Abdominal Exam: Normal Inspection, Normal Bowel Sounds Abdominal Tenderness: negative: RUQ, RLQ, LUQ, LLQ, Epigastrium, Suprapubic, Diffuse, Mild, Moderate, Severe, Other - Extremities Extremities Exam: Normal Inspection - Back Back Exam: Normal Inspection - Neurologic Neurological Exam: Alert, Oriented X3, CN II-XII Intact - Psychiatric Psychiatric Exam: Normal Affect - Skin Skin Exam: Warm, Dry, Intact Course - Reevaluation 1st: Improved - Diagnosis Discharge Problem: Migraine - Discharge Plan Condition: Stable - Follow ups/Referrals Follow ups/Referrals: KALE BARNETT [Primary Care Provider] - 3 days - Instructions
[2016-12-28] MEDS ORDERED: DECADRON INJ IM ONE (21:44)
[2016-12-28] MEDS ORDERED: ZOFRAN INJ 4 MG VIAL IVP ONE ×2 (21:47→22:00)
[2016-12-28] MEDS ORDERED: DECADRON INJ ONE (21:49)
[2016-12-28] MEDS ORDERED: ZOFRAN INJ 4 MG VIAL ONE (21:49)
[2016-12-28] MEDS ORDERED: DECADRON INJ IV ONE (21:50)
[2016-12-28] MEDS ORDERED: NS 500 ML IV 500 ML IV ONE (21:51)
[2016-12-28] MEDS ORDERED: NUBAIN INJ 10 IVP ONE (21:52)
[2016-12-28] MEDS ORDERED: NUBAIN INJ 10 ONE (22:00)
[2016-12-28] MEDS ORDERED: NS 1000 ML 1,000 ML ONE (22:00)
[2016-12-28 22:13] LABS: BILIRUBIN,URINE NEGATIVE (NEGATIVE); BLOOD/HEMOGLOBIN,URINE NEGATIVE (NEGATIVE); GLUCOSE, URINE NEGATIVE (NEGATIVE); KETONES,URINE NEGATIVE (NEGATIVE); LEUKOCYTE ESTERASE ,URINE NEGATIVE (NEGATIVE); NITRITES,URINE NEGATIVE (NEGATIVE); PROTEIN,URINE NEGATIVE (NEGATIVE); UROBILINOGEN,URINE NORMAL (NORMAL)
[2016-12-28 22:19] LABS: APPEARANCE,URINE CLEAR (CLEAR); COLOR,URINE YELLOW (YELLOW); RBC,URINE NONE SEEN /HPF (NEGATIVE)
[2016-12-28 22:20] LABS: BACTERIA,URINE TRACE /HPF (NEGATIVE); MUCUS,URINE MANY /HPF (NEGATIVE); SQUAMOUS EPITHELIAL CELL,UR RARE /HPF (NEGATIVE)
== END 2016-12-28 23:47 | disposition home or self-care (01) ==
LOC: ER 20:07
DX: G43.909 Migraine, unspecified, not intractable, without status migrainosus (principal)
CPT/HCPCS: 81001; 96365; 96374; 96375; 99283; A4222; J1100; J2300; J2405

== ENCOUNTER 2017-01-23 20:56 | Emergency (ER) | payer OTHER ==
[2017-01-23 21:04] VITALS: BMI 37.1
--- NOTE | 2017-01-23 21:54 | DR.HEADACH ---
HPI - Time Seen Time seen: 21:50 - Primary Care Physician Primary Care Physician: kate stevens - Complaint/Symptoms Chief Complaint Doctors Comments: Patient complains of a headache for the past three days with nausea with hot flashes with spells of weakness. Patient states she has been taking Tylenol #4 and phenergan but has been unable to keep it down lately. states she is a patient of Dr. Caldwell in [place] and he has her on multiple medicines including Elavil zantac, inderal, xanax, effexor, and adderall. States she is unsure the last time she had a CT of her head. She denies any recent truama. Chief Complaint:: "migraine for 3 days, n/v" Self Treatment fo Chief Complaint: tylenol with codeine, phenergan - Reviewed Nurses Notes Reviewed: Yes - Source History Provided: Patient - Mode of Arrival Mode of Arrival: Ambulatory - Timing Onset of Chief Complaint: 01/20/17 - Duration Since Onset: Constant How lon Duration: Days - Location Headache Location: Generalized, Occipital - Quality Quality: Sharp - Severity Headache Severity: Moderate, Like Previous Headaches - Context Headache Onset Circumstances: Spontaneous History of: Hypertension Prior Work Up: CT - Modifying Factors Improves With: Nothing Worsens: Nothing - Associated Signs and Symptoms Associated Symptoms: Nausea, Weakness, Nasal Congestion PMH - PMH Past Medical History: Yes Past Medical History: Anemia, Anxiety, Asthma, Depression, Diabetes, Migraines, Hypertension Past Surgical History: Yes Surgical History: , 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 negative: See HPI, Chills, Diaphoresis, Fever, Malaise, Weakness, Irritable, Fatigue, Loss of Appetite, Other Eyes: No Symptoms Reported ENTM: Nose Congestion Respiratoy: No Symptoms Reported. negative: See HPI, Productive Cough, Non- Productive Cough, Moist Cough, Dry Cough, Hacking Cough, Barking Cough, Brassy Cough, Orthopnea, Short of Breath, Stridor, Wheezing, Hemoptysis, Other Cardiovascular: No Symptoms Reported Gastrointestinal/Abdominal: No Symptoms Reported, Nausea, Vomiting Genitourinary: No Symptoms Reported. negative: See HPI, Discharge, Dysuria, Frequency, Hematuria, Pain, Bleeding, Other Neurological: No Symptoms Reported, Headache Musculoskeletal: No Symptoms Reported Integumentary: No Symptoms Reported Hematologic/Lymphatic: No Symptoms Reported Endocrine: No Symptoms Reported Psychiatric: No Symptoms Reported PE - Vital Signs Vitals: Temperature 98.7 F Pulse Rate [Right Brachial] 106 Pulse Rate 120 Respiratory Rate 16 Blood Pressure [Right Arm] 121/68 Blood Pressure [Left Arm] 160/98 Blood Pressure 163/102 O2 Sat by Pulse Oximetry 98 - General Limitations: No Limitations General Appearance: Alert, In No Apparent Distress - Head Head Exam: Normal Inspection, Atraumatic, Normocephalic - Eyes Eye exam: Normal Appearance, PERRL, EOMI. negative: Scleral Icterus, Conjunctival Injection, Nystagmus, Miosis, Mydrasis, Periorbital Swelling, Periorbital Tenderness, Other Eyelids: Normal Inspection: Bilateral Pupils: Regular, Round: Bilateral Sclera/Conjunctival: Normal Inspection: Bilateral - ENT ENT Exam: Normal Exam, Normal Oropharynx, Normal External Ear Exam, Mucous Membranes Moist, TM's Normal Bilaterally External Ear Exam: Normal External Inspection TM/Canal Exam: Bilateral Normal Nose Exam: Normal Nose Exam Mouth Exam: Normal Inspection Teeth Exam: Normal Inspection Throat Exam: Normal Inspection - Neck Neck Exam: Normal Inspection - Chest Chest Inspection: Normal Inspection, Symmetric Chest Wall Rise - Respiratory Respiratory Exam: Normal Lung Sounds Bilat Respiratory Exam: Bilateral Clear to Auscultation - Cardiovascular Cardiovascular Exam: Regular Rate, Normal Rhythm, Normal Heart Sounds - Abdominal Exam Abdominal Exam: Normal Inspection, Normal Bowel Sounds, Soft Abdominal Tenderness: negative: RUQ, RLQ, LUQ, LLQ, Epigastrium, Suprapubic, Diffuse, Mild, Moderate, Severe, Other - Extremities Extremities Exam: Normal Inspection, Full ROM, Normal Capillary Refill. negative: Tenderness, Edema, Joint Swelling, Calf Tenderness, Other - Back Back Exam: Normal Inspection, Full ROM - Neurologic Neurological Exam: Alert, Oriented X3, CN II-XII Intact, Reflexes Normal. negative: Motor Sensory Deficit - Psychiatric Psychiatric Exam: Normal Affect, Normal Mood. negative: Depressed, Agitated, Anxious, Flat Affect, Manic, Homicidal Ideation, Suicidal Ideation, Other - Skin Skin Exam: Warm, Dry, Intact, Normal Color ROR - Labs Reviewed Laboratory Results Reviewed?: Yes (all labs and x-ray results reviewed and discussed with patient) Result Diagrams: 01/23/17 22:10 01/23/17 22:10 Laboratory: WBC 7.6 X10^3/uL (3.6-10.0) 01/23/17 22:10 RBC 4.37 X10^6/uL (3.5-5.4) 01/23/17 22:10 Hgb 13.1 g/dL (12.0-16.0) 01/23/17 22:10 Hct 38.5 % (36.0-47.0) 01/23/17 22:10 MCV 88.2 fL (80.0-100.0) 01/23/17 22:10 MCH 30.1 pg (27.0-34.0) 01/23/17 22:10 MCHC 34.1 g/dL (33.0-35.0) 01/23/17 22:10 RDW 13.0 % (11.6-16.5) 01/23/17 22:10 Plt Count 305 X10^3/uL (150.0-450.0) 01/23/17 22:10 MPV 7.9 fL (7.4-11.0) 01/23/17 22:10 Neut % 40.9 % (42.0-75.0) L 01/23/17 22:10 Lymph % 44.7 % (21.0-51.0) 01/23/17 22:10 Brooks % 10.3 % (0.0-13.0) 01/23/17 22:10 Eos % 3.7 % (0.9-2.9) H 01/23/17 22:10 Baso % 0.4 % (0.2-1.0) 01/23/17 22:10 Neut # 3.1 x10^3/uL (2.2-4.8) 01/23/17 22:10 Lymph # 3.4 X10^3/uL (1.3-2.9) H 01/23/17 22:10 Brooks # 0.8 x10^3/uL (0.3-0.8) 01/23/17 22:10 Eos # 0.3 x10^3/uL (0.0-0.2) H 01/23/17 22:10 Baso # 0.0 X10^3/uL (0.0-0.1) 01/23/17 22:10 Absolute Nucleated RBC 0.1 /100WBC 01/23/17 22:10 Sodium 144 mmol/L (136-145) 01/23/17 22:10 Corrected Sodium TNP 01/23/17 22:10 Potassium 3.4 mmol/L (3.5-5.1) L 01/23/17 22:10 Chloride 105 mmol/L (98-107) 01/23/17 22:10 Carbon Dioxide 32.9 mmol/L (21-32) H 01/23/17 22:10 BUN 18 mg/dL (7-18) 01/23/17 22:10 Creatinine 1.10 mg/dL (0.55-1.02) H 01/23/17 22:10 Est GFR (MDRD) Af Amer > 60 (>60) 01/23/17 22:10 Est GFR (MDRD) Non-Af > 60 (>60) 01/23/17 22:10 Glucose 83 mg/dL (65-99) 01/23/17 22:10 Calcium 9.0 mg/dL (8.5-10.1) 01/23/17 22:10 Corrected Calcium TNP 01/23/17 22:10 Total Bilirubin 0.20 mg/dL (0.2-1.0) 01/23/17 22:10 AST 50 Units/L (15-37) H 01/23/17 22:10 ALT 99 Units/L (12-78) H 01/23/17 22:10 Alkaline Phosphatase 87 Units/L (46-116) 01/23/17 22:10 Total Protein 8.0 g/dL (6.4-8.2) 01/23/17 22:10 Albumin 4.0 g/dL (3.4-5.0) 01/23/17 22:10 Globulin 4.0 g/dL (2.5-4.5) 01/23/17 22:10 Albumin/Globulin Ratio 1.0 Ratio (1.1-2.1) L 01/23/17 22:10 - XRAY XRAY Interpreted by: Radiologist (CT head: NO acute intracranial proces identified.) - Diagnosis Discharge Problem: Hypokalemia Headache Qualifiers: Headache chronicity pattern: chronic headache - Discharge Plan Disposition: 01 HOME, SELF-CARE Condition: Stable Prescriptions: Potassium Chloride [K-DUR TAB 20 mEq *] 20 meq PO DAILY #5 tab - Follow ups/Referrals Follow ups/Referrals: NFD,None [Primary Care Provider] - 3 days - Instructions Instructions: Migraine Headache, [id number], Hypokalemia
[2017-01-23] MEDS ORDERED: REGLAN INJ 10 MG VIAL IM STA (21:56)
[2017-01-23] MEDS ORDERED: ZOFRAN INJ 4 MG VIAL IM ONE (21:58)
[2017-01-23] MEDS ORDERED: CATAPRES TAB 0.1 MG PO ONE (21:59)
[2017-01-23] MEDS ORDERED: NORCO 10/325 TAB PO ONE (22:01)
[2017-01-23] MEDS ORDERED: REGLAN INJ 10 MG VIAL ONE (22:04)
[2017-01-23] MEDS ORDERED: ZOFRAN INJ 4 MG VIAL ONE (22:04)
[2017-01-23] MEDS ORDERED: NORCO 10/325 TAB ONE (22:05)
[2017-01-23 22:11] VITALS: BP 121/68
--- NOTE | 2017-01-23 22:41 | CT ---
HISTORY: Headache. Study: CT brain without contrast Comparison: 08/03/2015 Technique: Multiple axial images of the brain were obtained from the skull base to the vertex without administr ation of IV contrast. Automated exposure control (AEC) was utilized to adjust the MA and/or kV accor ding to patient size. Findings: There is no acute intracranial hemorrhage. The brain parenchyma is normal in density. No mass or m ass effect. No abnormal extra-axial fluid collection. The ventricles are normal in size, shape and position. Basilar cisterns patent. Escalante matter -white matter interface is distinct. The bilateral mastoid air cells and included paranasal sinuses are predominantly clear. There is no acute osseous abnormality. IMPRESSION: 1. No acute intracranial process can be identified. Reported By:
[2017-01-23 22:43] LABS: BASOPHILS % (AUTO) 0.4 % (0.2-1.0); EOSINOPHILS # (AUTO) 0.3 x10^3/uL (0.0-0.2); EOSINOPHILS % (AUTO) 3.7 % (0.9-2.9); HEMATOCRIT 38.5 % (36.0-47.0); HEMOGLOBIN 13.1 g/dL (12.0-16.0); LYMPHOCYTES # (AUTO) 3.4 X10^3/uL (1.3-2.9); LYMPHOCYTES % (AUTO) 44.7 % (21.0-51.0); MEAN CORPUSCULAR HEMOGLOBIN 30.1 pg (27.0-34.0); MEAN CORPUSCULAR HGB CONC 34.1 g/dL (33.0-35.0); MEAN CORPUSCULAR VOLUME 88.2 fL (80.0-100.0); MEAN PLATELET VOLUME 7.9 fL (7.4-11.0); MONOCYTES # (AUTO) 0.8 x10^3/uL (0.3-0.8); MONOCYTES % (AUTO) 10.3 % (0.0-13.0); NEUTROPHILS # (AUTO) 3.1 x10^3/uL (2.2-4.8); NEUTROPHILS % (AUTO) 40.9 % (42.0-75.0); PLATELET COUNT 305 X10^3/uL (150.0-450.0); RED BLOOD COUNT 4.37 X10^6/uL (3.5-5.4); WHITE BLOOD COUNT 7.6 X10^3/uL (3.6-10.0)
[2017-01-23 22:51] LABS: ALANINE AMINOTRANSFERASE 99 Units/L (12-78); ALKALINE PHOSPHATASE 87 Units/L (46-116); ASPARTATE AMINO TRANSFERASE 50 Units/L (15-37); BLOOD UREA NITROGEN 18 mg/dL (7-18); CARBON DIOXIDE 32.9 mmol/L (21-32); CHLORIDE 105 mmol/L (98-107); GLUCOSE 83 mg/dL (65-99); SODIUM 144 mmol/L (136-145); eGFR BLACK RACES > 60 (>60); eGFR NON BLACK RACES > 60 (>60)
[2017-01-23] MEDS ORDERED: NUBAIN INJ 10 IM ONE (23:16)
[2017-01-23] MEDS ORDERED: NUBAIN INJ 10 ONE (23:21)
== END 2017-01-23 23:41 | disposition home or self-care (01) ==
LOC: ER 20:56
DX: E87.6 Hypokalemia (principal); R51 Headache
CPT/HCPCS: 36415; 70450; 80053; 85025; 96372; 99283; J2300; J2405; J2765

== ENCOUNTER 2017-01-29 05:22 | Emergency (ER) | payer OTHER ==
[2017-01-29 05:31] VITALS: BMI 37.1
[2017-01-29] MEDS ORDERED: CATAPRES TAB 0.2 MG ONE (06:39)
[2017-01-29] MEDS ORDERED: CATAPRES TAB 0.2 MG PO ONE (06:42)
--- NOTE | 2017-01-29 06:42 | DR.GENAD ---
HPI - PCP Primary Care Physician: ANIBAL - HPI Comment HPI Comment: Pt was in the room with Mr. Armas and subsequently checked herself into ED. She c.o migraine headache for 4 days with nausea and vomiting. Her BP is also elevated. She has vomited several times this am.She denies fever and chills.'She rate migraine at 9/10. - Complaint/Symptoms Chief Complaint Doctors Comments: Headache for 4 days. Chief Complaint:: MIGRAINE CLARK X 5 DAYS [place] Self Treatment fo Chief Complaint: TYLENOL #4 AND PHENERGAN - Nurses notes reviewed Nurses Notes Review: Yes - Source History Provided: Patient - Mode of Arrival Mode of Arrival: Ambulatory - Timing Onset of Chief Complaint: 01/25/17 Came on: Gradually - Duration Duration: Intermittent How lon Duration: Days - Location Location: "all over my head" - Severity Severity: Severe - Associated Signs and Symptoms Associated Signs and Symptoms: nausea and vomiting <MICA MOONEY - Last Filed: 01/29/17 06:38> PMH - PMH Past Medical History: Yes Past Medical History: Anemia, Anxiety, Asthma, Depression, Diabetes, Migraines, Hypertension Past Surgical History: Yes Surgical History: , Cholecystectomy, [employer] Surgery, 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, Tonsillectomy - Family History History of Family Medical Conditions: Yes Family Medical History: Diabetes Mellitus, Hypertension - Social History Does patient currently use any type of tobacco product: Yes Have you used tobacco products in the last 12 months: Yes Type of Tobacco Use: Cigarettes Does any household member use tobacco: Yes Alcohol Use: None Do you use any recreational Drugs:: No Lives With: Significant Other Lives Where: Home - infectious screening In the last 2 months have you had wt loss of >10#?: NO Have you had fever, night sweats or hemotysis?: No Have you traveled outside the country in the last 6 months?: No Isolation: Standard <MICA MOONEY - Last Filed: 01/29/17 06:38> ROS - Review of Systems Constitutional: No Symptoms Reported Eyes: No Symptoms Reported ENTM: No Symptoms Reported Respiratoy: No Symptoms Reported Cardiovascular: No Symptoms Reported Gastrointestinal/Abdominal: No Symptoms Reported, Nausea, Vomiting Genitourinary: No Symptoms Reported Neurological: Headache Musculoskeletal: No Symptoms Reported Integumentary: No Symptoms Reported Hematologic/Lymphatic: No Symptoms Reported Endocrine: No Symptoms Reported Psychiatric: No Symptoms Reported All Other Systems: Reviewed and Negative <MICA MOONEY - Last Filed: 01/29/17 06:38> PE - General Limitations: No Limitations General Appearance: Alert, In No Apparent Distress - Head Head Exam: Normal Inspection - Eyes Eye exam: Normal Appearance - Neck Neck Exam: Normal Inspection, Full ROM, Trachea Midline - Chest Chest Inspection: Normal Inspection, Symmetric Chest Wall Rise - Respiratory Respiratory Exam: Normal Lung Sounds Bilat Respiratory Exam: Bilateral Clear to Auscultation - Cardiovascular Cardiovascular Exam: Regular Rate, Normal Rhythm, Normal Heart Sounds - Abdominal Exam Abdominal Exam: Normal Inspection, Normal Bowel Sounds, Soft - Back Back Exam: Normal Inspection, Full ROM - Neurologic Neurological Exam: Alert, Oriented X3, CN II-XII Intact - Psychiatric Psychiatric Exam: Normal Affect, Normal Mood - Skin Skin Exam: Warm, Dry, Intact, Normal Color <MICA MOONEY - Last Filed: 01/29/17 06:38> MDM - Differential Diagnosis Differential Diagnosis: migraine, tension headache , uncontrolled hypertension <MICA MOONEY - Last Filed: 01/29/17 06:38> Course - Treatment Treatment: MEDS FOR HEADACHE AND HTN IN ED. HEADACHE STILL PRESENT. SLIGHTLY IMPROVE. BP NORMAL CURRENTLY IN ED. - Education/Counseling Education/Counseling: Patient, Education Educated On: Treatment, Diagnosis, Needs for Follow Up <JAVED RODRIGUES - Last Filed: 01/29/17 13:03> ROR - Labs Reviewed Result Diagrams: 01/29/17 07:18 01/29/17 07:18 <JAVED RODRIGUES - Last Filed: 01/29/17 13:03> - Labs Reviewed Laboratory: WBC 7.9 X10^3/uL (3.6-10.0) 01/29/17 07:18 RBC 4.52 X10^6/uL (3.5-5.4) 01/29/17 07:18 Hgb 14.0 g/dL (12.0-16.0) 01/29/17 07:18 Hct 39.7 % (36.0-47.0) 01/29/17 07:18 MCV 87.8 fL (80.0-100.0) 01/29/17 07:18 MCH 31.0 pg (27.0-34.0) 01/29/17 07:18 MCHC 35.3 g/dL (33.0-35.0) H 01/29/17 07:18 RDW 12.8 % (11.6-16.5) 01/29/17 07:18 Plt Count 287 X10^3/uL (150.0-450.0) 01/29/17 07:18 MPV 7.7 fL (7.4-11.0) 01/29/17 07:18 Neut % 49.3 % (42.0-75.0) 01/29/17 07:18 Lymph % 39.1 % (21.0-51.0) 01/29/17 07:18 [place] % 8.2 % (0.0-13.0) 01/29/17 07:18 Eos % 2.7 % (0.9-2.9) 01/29/17 07:18 Baso % 0.7 % (0.2-1.0) 01/29/17 07:18 Neut # 3.9 x10^3/uL (2.2-4.8) 01/29/17 07:18 Lymph # 3.1 X10^3/uL (1.3-2.9) H 01/29/17 07:18 [place] # 0.6 x10^3/uL (0.3-0.8) 01/29/17 07:18 Eos # 0.2 x10^3/uL (0.0-0.2) 01/29/17 07:18 Baso # 0.1 X10^3/uL (0.0-0.1) 01/29/17 07:18 Absolute Nucleated RBC 0.1 /100WBC 01/29/17 07:18 Sodium 141 mmol/L (136-145) 01/29/17 07:18 Corrected Sodium TNP 01/29/17 07:18 Potassium 4.1 mmol/L (3.5-5.1) 01/29/17 07:18 Chloride 105 mmol/L (98-107) 01/29/17 07:18 Carbon Dioxide 29.2 mmol/L (21-32) 01/29/17 07:18 BUN 14 mg/dL (7-18) 01/29/17 07:18 Creatinine 0.83 mg/dL (0.55-1.02) 01/29/17 07:18 Est GFR (MDRD) Af Amer > 60 (>60) 01/29/17 07:18 Est GFR (MDRD) Non-Af > 60 (>60) 01/29/17 07:18 Glucose 105 mg/dL (65-99) H 01/29/17 07:18 Calcium 8.8 mg/dL (8.5-10.1) 01/29/17 07:18 Corrected Calcium TNP 01/29/17 07:18 Total Bilirubin 0.20 mg/dL (0.2-1.0) 01/29/17 07:18 AST 52 Units/L (15-37) H 01/29/17 07:18 ALT 110 Units/L (12-78) H 01/29/17 07:18 Alkaline Phosphatase 96 Units/L (46-116) 01/29/17 07:18 Total Protein 8.4 g/dL (6.4-8.2) H 01/29/17 07:18 Albumin 4.0 g/dL (3.4-5.0) 01/29/17 07:18 Globulin 4.4 g/dL (2.5-4.5) 01/29/17 07:18 Albumin/Globulin Ratio 0.9 Ratio (1.1-2.1) L 01/29/17 07:18 Amylase 63 Units/L (25-115) 01/29/17 07:18 Specimen Type Clean catch urine 01/29/17 08:02 Urine Color Pale yellow (YELLOW) 01/29/17 08:02 Urine Appearance Clear (CLEAR) 01/29/17 08:02 Urine pH 7.0 (5.0 - 8.0) 01/29/17 08:02 Ur Specific [place] 1.010 (1.000-1.030) 01/29/17 08:02 Urine Protein Negative (NEGATIVE) 01/29/17 08:02 Urine Glucose (UA) Negative (NEGATIVE) 01/29/17 08:02 Urine Ketones Negative (NEGATIVE) 01/29/17 08:02 Urine Occult Blood 1+ (NEGATIVE) 01/29/17 08:02 Urine Nitrite Negative (NEGATIVE) 01/29/17 08:02 Urine Bilirubin Negative (NEGATIVE) 01/29/17 08:02 Urine Urobilinogen Normal (NORMAL) 01/29/17 08:02 Ur Leukocyte Esterase 1+ (NEGATIVE) 01/29/17 08:02 Urine RBC Rare /HPF (NEGATIVE) 01/29/17 08:02 Urine WBC 0-2 /HPF (NEGATIVE) 01/29/17 08:02 Ur Squamous Epith Cells Numerous /HPF (NEGATIVE) 01/29/17 08:02 Urine Bacteria Trace /HPF (NEGATIVE) 01/29/17 08:02 Ur Culture Indicated? No/not indicated 01/29/17 08:02 Urine Opiates Screen Negative (NEG=<300) 01/29/17 08:02 Urine Methadone Screen Negative (NEG=<300) 01/29/17 08:02 Ur Barbiturates Screen Negative (NEG=<200) 01/29/17 08:02 Ur Phencyclidine Scrn Negative (NEG=<25) 01/29/17 08:02 Ur Amphetamines Screen Positive (NEG=<1000) A 01/29/17 08:02 U Benzodiazepines Scrn Negative (NEG=<200) 01/29/17 08:02 Urine Cocaine Screen Negative (NEG=<300) 01/29/17 08:02 U Marijuana (THC) Screen Negative (NEG=<50) 01/29/17 08:02 (JAVED RODRIGUES) <MICA MOONEY - Last Filed: 01/29/17 06:38> <JAVED RODRIGUES - Last Filed: 01/29/17 13:03> - Diagnosis Discharge Problem: Hypertensive urgency Migraine Qualifiers: Migraine type: without aura Status migrainosus presence: without status migrainosus Intractability: not intractable Qualified Code(s): G43.009 - Migraine without aura, not intractable, without status migrainosus - Discharge Plan Disposition: 01 HOME, SELF-CARE Condition: Stable Prescriptions: [id number] [Fioricet Tab] 1 tab PO Q8H PRN #20 tab PRN Reason: Migraine Headache Ondansetron HCl [Zofran Tab 4 mg] 4 mg PO Q8H PRN 12 Days PRN Reason: Nausea/Vomiting - Follow ups/Referrals Follow ups/Referrals: KALE BARNETT [Primary Care Provider] - 3 days - Instructions Instructions: Hypertension, [id number], Managing Your High Blood Pressure, Nausea, Adult, Recurrent Migraine Headache, [id number], Migraine Headache, [id number] Additional Instructions: RETURN TO ED IF WORSE.
[2017-01-29] MEDS ORDERED: ZOFRAN INJ 4 MG VIAL IM ONE (06:52)
[2017-01-29] MEDS ORDERED: THORAZINE INJ 25 MG AMP IM ONE (06:52)
[2017-01-29] MEDS ORDERED: THORAZINE INJ 25 MG AMP ONE (06:58)
[2017-01-29] MEDS ORDERED: ZOFRAN INJ 4 MG VIAL ONE (07:12)
[2017-01-29 07:29] LABS: BASOPHILS # (AUTO) 0.1 X10^3/uL (0.0-0.1); BASOPHILS % (AUTO) 0.7 % (0.2-1.0); EOSINOPHILS # (AUTO) 0.2 x10^3/uL (0.0-0.2); EOSINOPHILS % (AUTO) 2.7 % (0.9-2.9); HEMATOCRIT 39.7 % (36.0-47.0); LYMPHOCYTES # (AUTO) 3.1 X10^3/uL (1.3-2.9); LYMPHOCYTES % (AUTO) 39.1 % (21.0-51.0); MEAN CORPUSCULAR HGB CONC 35.3 g/dL (33.0-35.0); MEAN CORPUSCULAR VOLUME 87.8 fL (80.0-100.0); MEAN PLATELET VOLUME 7.7 fL (7.4-11.0); MONOCYTES # (AUTO) 0.6 x10^3/uL (0.3-0.8); MONOCYTES % (AUTO) 8.2 % (0.0-13.0); NEUTROPHILS # (AUTO) 3.9 x10^3/uL (2.2-4.8); NEUTROPHILS % (AUTO) 49.3 % (42.0-75.0); PLATELET COUNT 287 X10^3/uL (150.0-450.0); RED BLOOD COUNT 4.52 X10^6/uL (3.5-5.4); RED CELL DISTRIBUTION WIDTH 12.8 % (11.6-16.5); WHITE BLOOD COUNT 7.9 X10^3/uL (3.6-10.0)
[2017-01-29 07:38] LABS: ALANINE AMINOTRANSFERASE 110 Units/L (12-78); ALKALINE PHOSPHATASE 96 Units/L (46-116); AMYLASE 63 Units/L (25-115); ASPARTATE AMINO TRANSFERASE 52 Units/L (15-37); BLOOD UREA NITROGEN 14 mg/dL (7-18); CALCIUM 8.8 mg/dL (8.5-10.1); CARBON DIOXIDE 29.2 mmol/L (21-32); CHLORIDE 105 mmol/L (98-107); CREATININE 0.83 mg/dL (0.55-1.02); SODIUM 141 mmol/L (136-145); TOTAL PROTEIN 8.4 g/dL (6.4-8.2); eGFR BLACK RACES > 60 (>60); eGFR NON BLACK RACES > 60 (>60)
[2017-01-29 07:39] LABS: GLUCOSE 105 mg/dL (65-99)
[2017-01-29] MEDS ORDERED: LR 1000 ML IV 1,000 ML IV ONE ×2 (07:44→08:08)
[2017-01-29 08:12] LABS: BILIRUBIN,URINE NEGATIVE (NEGATIVE); BLOOD/HEMOGLOBIN,URINE 1+ (NEGATIVE); GLUCOSE, URINE NEGATIVE (NEGATIVE); KETONES,URINE NEGATIVE (NEGATIVE); LEUKOCYTE ESTERASE ,URINE 1+ (NEGATIVE); NITRITES,URINE NEGATIVE (NEGATIVE); PROTEIN,URINE NEGATIVE (NEGATIVE); UROBILINOGEN,URINE NORMAL (NORMAL)
[2017-01-29 08:25] LABS: APPEARANCE,URINE CLEAR (CLEAR); BACTERIA,URINE TRACE /HPF (NEGATIVE); COLOR,URINE PALE YELLOW (YELLOW); RBC,URINE RARE /HPF (NEGATIVE); SQUAMOUS EPITHELIAL CELL,UR NUMEROUS /HPF (NEGATIVE)
[2017-01-29] MEDS ORDERED: PHENERGAN INJ 25 MG IV ONE (08:27)
[2017-01-29] MEDS ORDERED: DECADRON INJ IV ONE (08:27)
[2017-01-29] MEDS ORDERED: DECADRON INJ ONE (08:32)
[2017-01-29] MEDS ORDERED: PHENERGAN INJ 25 MG ONE (08:32)
[2017-01-29] MEDS ORDERED: NORCO 10/325 TAB PO ONE (09:31)
[2017-01-29] MEDS ORDERED: NORCO 10/325 TAB ONE (09:33)
[2017-01-29 10:17] VITALS: BP 133/85
== END 2017-01-29 10:23 | disposition home or self-care (01) ==
LOC: ER 05:22
DX: G43.009 Migraine without aura, not intractable, without status migrainosus (principal); I16.0 Hypertensive urgency
CPT/HCPCS: 36415; 80053; 80307; 81001; 82150; 85025; 96365; 96367; 96372; 96374; 96375; 99283; G0434; J1100; J2405; J2550; J3230; J7120

== ENCOUNTER 2017-01-29 20:24 | Emergency (ER) | payer OTHER ==
[2017-01-29 20:36] VITALS: BP 147/83; BMI 37.1
--- NOTE | 2017-01-29 21:49 | DR.GENAD ---
HPI - PCP Primary Care Physician: KALE BARNETT - Complaint/Symptoms Chief Complaint Doctors Comments: Patient complains of persistent headache. States she was in the emergency room earlier and was given medicines but she is still nauseated and still has a severe headache and cannot get any rest. States this is not the worst headache but it has been lasting a little longer than usual. Patient in emergency room last week saying the same thing. She denies dizziness, syncope or weakness. Chief Complaint:: MIGRAINE AND VOMITING HASN'T EASED UP SINCE PT WAS SEEN IN ER LAST NIGHT Self Treatment fo Chief Complaint: BEEN SEEN IN ER HAS BEEN TAKING TYLENOL #4 2 1/2 HOURS AGO, NORCO THIS MORNING, XANAX 0.25MG 2 1/2 HOUS AGO, THORAZINE IM ZOFRAN AND PHENERGAN TIS AM IN THE ER. - Nurses notes reviewed Nurses Notes Review: Yes - Source History Provided: Patient - Mode of Arrival Mode of Arrival: Ambulatory - Timing Onset of Chief Complaint: 01/25/17 Came on: Gradually - Duration Duration: Constant How lon Duration: Days - Location Location: diffusee - Severity Severity: Severe - Modifying Factors Worsens:: movement, lights Improves:: nothing PMH - PMH Past Medical History: Yes Past Medical History: Anxiety, Depression, Diabetes, Migraines, Headaches, Hypertension Past Medical History Comment: PTSD,BIPOLAR Past Surgical History: Yes Surgical History: , Cholecystectomy, 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, Tonsillectomy Past Surgical History Comment: DNC TIMES 3 - Family History History of Family Medical Conditions: Yes Family Medical History: Diabetes Mellitus, Cancer, Coronary Artery Disease, Hypertension Family Medical History Comment: KIDNEY FAILUE, - Social History Does patient currently use any type of tobacco product: Yes Have you used tobacco products in the last 12 months: Yes Type of Tobacco Use: Cigarettes How many years tobacco product used: 20 Does any household member use tobacco: Yes Alcohol Use: None Do you use any recreational Drugs:: No Lives With: Significant Other Lives Where: Home - infectious screening In the last 2 months have you had wt loss of >10#?: NO Have you had fever, night sweats or hemotysis?: No Have you traveled outside the country in the last 6 months?: No Isolation: Standard ROS - Review of Systems Constitutional: No Symptoms Reported. negative: See HPI, Chills, Diaphoresis, Fever, Malaise, Weakness, Irritable, Fatigue, Loss of Appetite, Other Eyes: No Symptoms Reported, Blurred Vision, Photophobia. negative: See HPI, Eye Pain, Tearing, Discharge, Diplopia, Other ENTM: No Symptoms Reported Respiratoy: No Symptoms Reported Cardiovascular: No Symptoms Reported Gastrointestinal/Abdominal: No Symptoms Reported, Nausea, Vomiting. negative: See HPI, Abdominal Pain, Constipation, Diarrhea, Food Intolerance, Other Genitourinary: No Symptoms Reported. negative: See HPI, Discharge, Dysuria, Frequency, Hematuria, Pain, Bleeding, Other Neurological: No Symptoms Reported, Headache. negative: See HPI, Anxiety, Depressed, Emotional Problems, Numbness, Paresthesia, Pre-existing Deficit, Seizure, Tingling, Tremors, Weakness, Dizziness, Problems Walking, Speech Problem, Other Musculoskeletal: No Symptoms Reported Integumentary: No Symptoms Reported. negative: See HPI, Change in Color, Change in Hair/Nails, Dryness, Lesions, Lumps, Rash, Itching, Wound, Bruises, Juandice, Other Hematologic/Lymphatic: No Symptoms Reported. negative: See HPI, Anemia, Blood Clots, Easy Bleeding, Easy Bruising, Swollen Glands, Lymphadenopathy, Other Endocrine: No Symptoms Reported. negative: See HPI, Excessive Sweating, Flushing, Intolerance to Cold, Intolerance to Heat, Increased Hunger, Increased Thirst, Increased Urine, Unexplained Weight Gain, Unexplained Weight Loss, Failure to Thrive, Decreased Appetite, Other Psychiatric: No Symptoms Reported PE - Vital Signs Vitals: Temperature 98.4 F Pulse Rate 128 Respiratory Rate 20 Blood Pressure [Right Arm] 121/68 Blood Pressure [Left Arm] 133/85 Blood Pressure 147/83 O2 Sat by Pulse Oximetry 97 - General Limitations: No Limitations General Appearance: In No Apparent Distress - Head Head Exam: Normal Inspection, Atraumatic, Normocephalic - Eyes Eye exam: Normal Appearance, PERRL, EOMI. negative: Scleral Icterus, Conjunctival Injection, Nystagmus, Miosis, Mydrasis, Periorbital Swelling, Periorbital Tenderness, Other - ENT ENT Exam: Normal Exam, Normal Oropharynx, Normal External Ear Exam, Mucous Membranes Moist, TM's Normal Bilaterally External Ear Exam: Normal External Inspection TM/Canal Exam: Bilateral Normal Nose Exam: Normal Nose Exam Mouth Exam: Normal Inspection Throat Exam: Normal Inspection - Neck Neck Exam: Normal Inspection, Full ROM, Trachea Midline. negative: Tenderness, Meningismus, Lymphadenopathy, Thyromegaly, Other - Chest Chest Inspection: Normal Inspection, Symmetric Chest Wall Rise. negative: Tenderness, Rash, Abscess, Other - Respiratory Respiratory Exam: Normal Lung Sounds Bilat Respiratory Exam: Bilateral Clear to Auscultation - Cardiovascular Cardiovascular Exam: Regular Rate, Normal Rhythm, Normal Heart Sounds. negative : Bradycardia, Tachycardia, Irregular Rhythm, Systolic Murmur, Diastolic Murmur , Rubs, Gallop, Clicks, JVD, +S1, +S2, +S3, +S4, Other - Abdominal Exam Abdominal Exam: Normal Inspection, Normal Bowel Sounds, Soft. negative: Distention, Tenderness, Guarding, Rebound, Rigidity, Dimnished Bowel Sounds, Hyperactive Bowel Sounds, Hypoactive Bowel Sounds, Organomegaly, Trauma, Incision, Ascites, Mass, Bruit, Pulsatile Mass, Hernia, Other Abdominal Tenderness: negative: RUQ, RLQ, LUQ, LLQ, Epigastrium, Suprapubic, Diffuse, Mild, Moderate, Severe, Other - Extremities Extremities Exam: Normal Inspection, Full ROM, Normal Capillary Refill. negative: Tenderness, Edema, Joint Swelling, Calf Tenderness, Other - Back Back Exam: Normal Inspection, Full ROM. negative: Tenderness, (R) CVA Tenderness, (L) CVA Tenderness, Muscle Spasm, Paraspinal Tenderness, Vertebral Tenderness, Rashes, (R) Sciatic Notch Tenderness, (L) Sciatic Notch Tendern, (R ) Straight Leg Raise, (L) Straight Leg Raise, Other - Neurologic Neurological Exam: Alert, Oriented X3, CN II-XII Intact, Normal Gait, Reflexes Normal - Psychiatric Psychiatric Exam: Normal Affect, Normal Mood. negative: Depressed, Agitated, Anxious, Flat Affect, Manic, Homicidal Ideation, Suicidal Ideation, Other - Skin Skin Exam: Warm, Dry, Intact, Normal Color. negative: Rash, Cyanosis, Diaphoresis, Erythema, Pallor, Mottled, Other ROR - XRAY XRAY Interpreted by: Radiologist (CT head on 01/23/17: No acute intracranial process can be identified.) - Diagnosis Discharge Problem: Headache, Headache disorder, History of migraine - Discharge Plan Disposition: 01 HOME, SELF-CARE Condition: Stable - Follow ups/Referrals Follow ups/Referrals: KALE BARNETT [Primary Care Provider] - 3 days - Instructions Instructions: Migraine Headache, [id number], Chronic Pain, Recurrent Migraine Headache
[2017-01-29] MEDS ORDERED: TYLENOL #3 TAB (W/CODEINE) PO STA (21:51)
[2017-01-29] MEDS ORDERED: ZOFRAN INJ 4 MG VIAL IM ONE (21:52)
[2017-01-29] MEDS ORDERED: ATIVAN TAB 1 MG PO ONE (21:53)
[2017-01-29] MEDS ORDERED: ZOFRAN INJ 4 MG VIAL ONE (22:06)
[2017-01-29] MEDS ORDERED: TYLENOL #3 TAB (W/CODEINE) PO ONE (22:06)
[2017-01-29] MEDS ORDERED: ATIVAN TAB 1 MG ONE (22:06)
== END 2017-01-29 22:20 | disposition home or self-care (01) ==
LOC: ER 20:42
DX: R51 Headache (principal); Z86.69 Personal history of other diseases of the nervous system and sense organs
CPT/HCPCS: 36415; 80053; 80307; 81001; 82150; 85025; 96365; 96367; 96372; 96374; 96375; 99282; 99283; G0434; J1100; J2405; J2550; J3230; J7120

== ENCOUNTER 2017-02-17 18:03 | Emergency (ER) | payer OTHER ==
[2017-02-17 18:03] VITALS: BP 147/83
[2017-02-17 18:10] VITALS: BMI 37.1
--- NOTE | 2017-02-17 18:37 | DR.GENAD ---
HPI - PCP Primary Care Physician: rodney - HPI Comment HPI Comment: WRIST SWOLLEN AND PAINFULL. - Complaint/Symptoms Chief Complaint Doctors Comments: PATIENT FELL AND INJURED RIGHT WRIST YESTERDAY. NO LOC. Chief Complaint:: patient stated she fell down the stirs and then fell back up the stairs. patient stated she has a appointment wiith her bone doctor - Nurses notes reviewed Nurses Notes Review: Yes - Source History Provided: Patient - Mode of Arrival Mode of Arrival: Ambulatory - Timing Onset of Chief Complaint: 02/16/17 Came on: Suddenly - Duration Duration: Constant Duration: Days - Severity Severity: Moderate PMH - PMH Past Medical History: Yes Past Medical History: Anxiety, Depression, Diabetes, Migraines, Headaches, Hypertension Past Surgical History: Yes Surgical History: , Cholecystectomy, 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, Tonsillectomy - Family History History of Family Medical Conditions: Yes Family Medical History: Diabetes Mellitus, Cancer, Coronary Artery Disease, Hypertension - Social History Does patient currently use any type of tobacco product: Yes Have you used tobacco products in the last 12 months: Yes Type of Tobacco Use: Cigarettes How many years tobacco product used: 15 Does any household member use tobacco: Yes Alcohol Use: Rarely Do you use any recreational Drugs:: No Lives With: Family Lives Where: Home - infectious screening In the last 2 months have you had wt loss of >10#?: NO Have you had fever, night sweats or hemotysis?: No Have you traveled outside the country in the last 6 months?: No Isolation: Standard ROS - Review of Systems Constitutional: No Symptoms Reported Eyes: No Symptoms Reported ENTM: No Symptoms Reported Respiratoy: No Symptoms Reported Cardiovascular: No Symptoms Reported Gastrointestinal/Abdominal: No Symptoms Reported Genitourinary: No Symptoms Reported Neurological: No Symptoms Reported Musculoskeletal: Right, Wrist Integumentary: No Symptoms Reported Hematologic/Lymphatic: No Symptoms Reported Endocrine: No Symptoms Reported All Other Systems: Reviewed and Negative PE - Vital Signs Vitals: Temperature 98.6 F Respiratory Rate 16 Blood Pressure [Right Arm] 121/68 Blood Pressure [Left Arm] 133/85 Blood Pressure 147/83 - General Limitations: No Limitations General Appearance: Alert - Head Head Exam: Normal Inspection - Eyes Eye exam: Normal Appearance - ENT ENT Exam: Normal External Ear Exam External Ear Exam: Normal External Inspection Nose Exam: Normal Nose Exam Mouth Exam: Normal Inspection Throat Exam: Normal Inspection - Neck Neck Exam: Trachea Midline - Chest Chest Inspection: Symmetric Chest Wall Rise - Respiratory Respiratory Exam: Normal Lung Sounds Bilat Respiratory Exam: Bilateral Clear to Auscultation - Cardiovascular Cardiovascular Exam: Regular Rate, Normal Rhythm, Normal Heart Sounds - Abdominal Exam Abdominal Exam: Normal Inspection - Extremities Extremities Exam: Tenderness (RIGHT WRIST SWOLLEN AND TENDER WITH DECREASE ROM.) - Back Back Exam: Normal Inspection - Neurologic Neurological Exam: Alert - Psychiatric Psychiatric Exam: Anxious - Skin Skin Exam: Normal Color MDM - Differential Diagnosis Differential Diagnosis: CONTUSION, SPRAIN, FRATURE RT WRIST. Course - Treatment Treatment: SEE ORDERS. SPLINT APPLY IN ED. - Education/Counseling Education/Counseling: Patient, Education Educated On: Diagnosis, Needs for Follow Up ROR - XRAY XRAY Interpreted by: Radiologist XRAY Findings: REPORT DISCUSS WITH PATIENT. - Diagnosis Discharge Problem: Right wrist sprain Qualifiers: Encounter type: initial encounter Qualified Code(s): S63.501A - Unspecified sprain of right wrist, initial encounter - Discharge Plan Disposition: 01 HOME, SELF-CARE Condition: Stable Prescriptions: Methylprednisolone Dosepak 4Mg [MEDROL DOSEPAK (4 mg tab x 21)] 1 frank PO ONCE # 1 frank - Follow ups/Referrals Follow ups/Referrals: N[facility],None [Primary Care Provider] - 02/18/17 - Instructions Instructions: Wrist Sprain, Wrist Splint Additional Instructions: RETURN TO ED IF WORSE. SEE THE THE ORTHOPEDIC DOCTOR IN AM.
--- NOTE | 2017-02-17 19:08 | RAD ---
HISTORY: Right wrist pain after fall Study: Three views right wrist Comparison: None Findings: Normal alignment. No acute fracture or dislocation. The soft tissues are unremarkable. IMPRESSION: 1. No acute osseous abnormality. Reported By:
[2017-02-17] MEDS ORDERED: PREDNISONE TAB 10 MG PO ONE ×2 (20:13→20:15)
== END 2017-02-17 20:21 | disposition home or self-care (01) ==
LOC: ER 18:16
DX: S63.501A Unspecified sprain of right wrist, initial encounter (principal); W10.9XXA Fall (on) (from) unspecified stairs and steps, initial encounter; Y92.9 Unspecified place or not applicable
CPT/HCPCS: 73100; 99282; 99283; J7506

== ENCOUNTER 2017-03-10 09:16 | Day surgery (SDC) | payer OTHER ==
[2017-03-10] MEDS ORDERED: NS 1000 ML 1,000 ML ONE (09:33)
[2017-03-10 10:08] LABS: BASOPHILS % (AUTO) 0.9 % (0.2-1.0); EOSINOPHILS # (AUTO) 0.1 x10^3/uL (0.0-0.2); EOSINOPHILS % (AUTO) 2.3 % (0.9-2.9); HEMATOCRIT 36.4 % (36.0-47.0); HEMOGLOBIN 12.8 g/dL (12.0-16.0); LYMPHOCYTES # (AUTO) 2.4 X10^3/uL (1.3-2.9); LYMPHOCYTES % (AUTO) 49.4 % (21.0-51.0); MEAN CORPUSCULAR HEMOGLOBIN 30.7 pg (27.0-34.0); MEAN CORPUSCULAR HGB CONC 35.1 g/dL (33.0-35.0); MEAN CORPUSCULAR VOLUME 87.4 fL (80.0-100.0); MEAN PLATELET VOLUME 8.1 fL (7.4-11.0); MONOCYTES # (AUTO) 0.4 x10^3/uL (0.3-0.8); MONOCYTES % (AUTO) 8.2 % (0.0-13.0); NEUTROPHILS # (AUTO) 1.9 x10^3/uL (2.2-4.8); NEUTROPHILS % (AUTO) 39.2 % (42.0-75.0); PLATELET COUNT 240 X10^3/uL (150.0-450.0); RED BLOOD COUNT 4.16 X10^6/uL (3.5-5.4); RED CELL DISTRIBUTION WIDTH 13.2 % (11.6-16.5); WHITE BLOOD COUNT 4.9 X10^3/uL (3.6-10.0)
[2017-03-10 10:29] LABS: FREE T4 (FREE THYROXINE) 0.93 ng/dL (0.76-1.46); TSH (3RD GENERATION) 6.773 uIU/mL (0.358-3.74)
[2017-03-10 10:40] LABS: ALANINE AMINOTRANSFERASE 90 Units/L (12-78); ALBUMIN 3.8 g/dL (3.4-5.0); ALKALINE PHOSPHATASE 71 Units/L (46-116); ASPARTATE AMINO TRANSFERASE 50 Units/L (15-37); BLOOD UREA NITROGEN 9 mg/dL (7-18); CALCIUM 8.8 mg/dL (8.5-10.1); CARBON DIOXIDE 27.1 mmol/L (21-32); CHLORIDE 105 mmol/L (98-107); SODIUM 140 mmol/L (136-145); TOTAL PROTEIN 7.6 g/dL (6.4-8.2); eGFR BLACK RACES > 60 (>60); eGFR NON BLACK RACES > 60 (>60)
[2017-03-10] MEDS ORDERED: ZOFRAN INJ 4 MG VIAL ONE (14:07)
[2017-03-10] MEDS ORDERED: XYLOCAINE 2 % (PLAIN) ONE (14:43)
[2017-03-10] MEDS ORDERED: DIPRIVAN VIAL 20 ML ONE ×2 (14:43→14:56)
[2017-03-10] MEDS ORDERED: FENTANYL INJ 100 mcg ONE (14:51)
--- NOTE | 2017-03-10 15:26 | OR.GENERIC ---
Post-Op Note Generic - Post-Op Note Operative Report: Procedure Note March 10, 2017 Pre-Operative Diagnosis: Chronic constipation. Post-Operative Diagnosis: 1. Grade I internal and external hemorrhoids. 2. Poor prep. Procedure: Colonoscopy to cecum with random mucosal biopsy (cold biopsy forceps ). Surgeon: Thanh Vazquez MD. Package Sorter: Ernst Yap CRNA. Specimens: Random mucosal biopsy. Estimated blood loss: None. Complications: None. Summary: The patient is a 26 year old female who presented for a colonoscopy. The patient has a questionable history of inflammatory bowel disease and complains of chronic constipation. The risk and benefits of the procedure including difficulty with anesthesia, bleeding, infection, as well as perforation were discussed with the patient. The patient understood these risks and requested the procedure. On March 10, 2017, the patient was brought to the endoscopy suite. A time out was performed verifying the patient and procedure. The patient was placed in a left lateral decubitus position. After satisfactory induction of monitored anesthesia care, a rectal exam was performed. External hemorrhoids were seen. Next, an endoscopy was advanced through the anus and directed to the cecum without difficulty. The scope was then withdrawn viewing all mucosal surfaces. The patients prep was poor. Solid stool was seen throughout the proximal colon making visualization of the cecum difficult. The cecum, ascending, transverse, descending, as well as sigmoid portions of the colon were normal. Specifically, there were no masses, polyps, or diverticula. Visualization was limited due to poor prep. A random mucosal biopsy was taken using cold biopsy forceps and sent to pathology. The scope was withdrawn into the rectum and retroflexed. Grade I internal hemorrhoids were noted. The scope was straightened and insufflation evacuated. The scope was withdrawn and the procedure terminated. The patient was taken to the recovery room in stable condition. There were no complications.
[2017-03-10 15:50] VITALS: BP 112/69
[2017-03-10] MEDS ORDERED: VERSED ONE (16:27)
== END 2017-03-10 15:45 | disposition home or self-care (01) ==
LOC: SURG1 09:16
PROVIDERS: ATTEND Student in an Organized Health Care Education/Training Program
PROC: 0DBE8ZX Excision of Large Intestine, Via Natural or Artificial Opening Endoscopic, Diagnostic (ICD-10-PCS; principal; 2017-03-10 12:00)
DX: K59.09 Other constipation (principal); K64.0 First degree hemorrhoids; Z87.19 Personal history of other diseases of the digestive system; Z01.812 Encounter for preprocedural laboratory examination
CPT/HCPCS: 36415; 80053; 82607; 82746; 83540; 83550; 84439; 84443; 85025; A4217; J2001; J2250; J2405; J3010; J3490

== ENCOUNTER 2017-04-07 19:25 | Emergency (ER) | payer OTHER ==
[2017-04-07 19:30] VITALS: BP 158/77; BMI 36.7
--- NOTE | 2017-04-07 20:12 | DR.EXTPAIN ---
HPI - Time seen Time seen: 20:00 - PCP Primary Care Physician: KALE BARNETT - Complaint/Symptoms Chief Complaint Doctor Comments: Patient states that she has been taking tylenol #4 all day and has not gotten any relief. Chief Complaint:: FELL DOWN STAIRS LAST NIGHT. PAIN TO RIGHT WRIST AND RIGHT ANKLE. Self Treatment fo Chief Complaint: TYLENOL 4, IBUPROFEN - Source History Provided: Patient - Mode of arrival Mode of Arrival: Wheelchair - Timing Onset of Chief Complaint: 04/06/17 PMH - PMH Past Medical History: Yes Past Medical History: Anxiety, Depression, Diabetes, Migraines, Headaches, Hypertension Past Surgical History: Yes Surgical History: , Cholecystectomy, 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, Tonsillectomy - Family History History of Family Medical Conditions: Yes Family Medical History: Diabetes Mellitus, Cancer, Coronary Artery Disease, Hypertension - Social History Type of Tobacco Use: Cigarettes Alcohol Use: None Do you use any recreational Drugs:: No Lives With: Family Lives Where: Home - infectious screening Have you traveled outside the country in the last 6 months?: No Isolation: Standard ROS - Review of Systems Eyes: No Symptoms Reported ENTM: No Symptoms Reported Respiratoy: No Symptoms Reported Cardiovascular: No Symptoms Reported Gastrointestinal/Abdominal: No Symptoms Reported Genitourinary: No Symptoms Reported Neurological: No Symptoms Reported Musculoskeletal: Wrist (right with pain), Ankle (right with pain) Integumentary: No Symptoms Reported Hematologic/Lymphatic: No Symptoms Reported Endocrine: No Symptoms Reported Psychiatric: No Symptoms Reported All Other Systems: Reviewed and Negative PE - Vital Signs Vitals: Pulse Rate 110 Respiratory Rate 18 Blood Pressure [Right Arm] 121/68 Blood Pressure [Left Arm] 133/85 Blood Pressure 158/77 O2 Sat by Pulse Oximetry 100 - General General Appearance: Alert, In No Apparent Distress - Head Head Exam: Normal Inspection, Atraumatic - Eyes Eye exam: Normal Appearance, PERRL, EOMI - ENT ENT Exam: Normal Exam - Neck Neck Exam: Normal Inspection, Full ROM - Chest Chest Inspection: Normal Inspection - Respiratory Respiratory Exam: Normal Lung Sounds Bilat Respiratory Exam: Bilateral Clear to Auscultation - Cardiovascular Cardiovascular Exam: Regular Rate, Normal Rhythm - Abdominal Exam Abdominal Exam: Normal Inspection Abdominal Tenderness: negative: RUQ, RLQ, LUQ, LLQ, Epigastrium, Suprapubic, Diffuse, Mild, Moderate, Severe, Other - Extremities Extremities Exam: Tenderness (right wrist) - Upper Extremities Shoulder Exam: Normal Inspection Arm Exam: Normal Inspection Elbow Exam: Normal Inspection Forearm Exam: Normal Inspection, Full ROM Hand Exam: Normal Inspection Neuromotor Exam: Normal Exam Neurosensory Exam: Normal Exam Hand Tendon Exam: Flexor Digitorium Profundus (Location) - Lower Extremities Hip/Pelvis Exam: Normal Inspection Upper Leg Exam: Normal Inspection, Full ROM Knee Exam: Normal Inspection Lower Leg Exam: Normal Inspection Ankle Exam: Tenderness (right ankle with edema) Foot/Toe Exam: Tenderness (right cuneiform ) Neurovascular/Tendon Exam: Normal Capillary Refill Gait Exam: Observed and Normal - Back Back Exam: Normal Inspection, Full ROM - Neurological Neurological Exam: Alert, Oriented X3, CN II-XII Intact - Psychiatric Psychiatric Exam: Normal Affect - Skin Skin Exam: Warm, Dry, Intact Type of Lesion: Rash Distribution: Generalized ROR - XRAY XRAY Interpreted by: Radiologist (Wrist: negative Ankle: negative) - Diagnosis Discharge Problem: Ankle sprain Qualifiers: Encounter type: initial encounter Involved ligament of ankle: unspecified ligament Laterality: right Qualified Code(s): S93.401A - Sprain of unspecified ligament of right ankle, initial encounter Sprain of wrist, right Qualifiers: Encounter type: initial encounter Qualified Code(s): S63.501A - Unspecified sprain of right wrist, initial encounter - Discharge Plan Condition: Stable - Follow ups/Referrals Follow ups/Referrals: KALE BARNETT [Primary Care Provider] - 3 days - Instructions
--- NOTE | 2017-04-07 21:42 | RAD ---
HISTORY: 26-year-old female with right ankle pain status post fall. Study: Three views right ankle. Comparison: Right ankle radiographs 08/24/2014. Findings: Talar dome is intact. No acute cortical disruption or dislocation can be identified. The ankle morti se remains well aligned. No significant soft tissue swelling or injury can be seen. The visualized portions of the talus and calcaneus are unremarkable. IMPRESSION: 1. Negative exam. Reported By:
--- NOTE | 2017-04-07 21:43 | RAD ---
HISTORY: 26-year-old female status post fall with right wrist pain. Study: Three views right wrist. Comparison: Right wrist radiographs 02/17/2017. Findings: No evidence for acute cortical disruption or dislocation can be identified. The carpal bones appear well aligned. The visualized portions of the distal radius and ulna are unremarkable. No significan t soft tissue abnormality can be identified. IMPRESSION: 1. Negative exam. Reported By:
== END 2017-04-07 22:28 | disposition home or self-care (01) ==
LOC: ER 19:34
DX: S93.401A Sprain of unspecified ligament of right ankle, initial encounter (principal); S63.501A Unspecified sprain of right wrist, initial encounter; W10.9XXA Fall (on) (from) unspecified stairs and steps, initial encounter; Y92.9 Unspecified place or not applicable
CPT/HCPCS: 73100; 73610; 99282

== ENCOUNTER 2017-05-26 07:37 | Emergency (ER) | payer OTHER ==
[2017-05-26 07:46] VITALS: BP 137/100; BMI 36.0
[2017-05-26] MEDS ORDERED: ROBITUSSIN (PLAIN) PO ONE (09:28)
[2017-05-26] MEDS ORDERED: TORADOL 60 MG VIAL IM ONE (09:29)
--- NOTE | 2017-05-26 09:30 | DR.SOBA ---
HPI - Time Seen Time seen: 09:20 - Primary Care Physician Primary Care Physician: ANIBAL HOLDER - Complaints Chief Complaint Doctors Comments: She's had cold symptoms x 1 week. Symptoms consists of cough, nasal congestion, low grade fever no chills. Her cough is productive of green-yellow phlegm. Chief Complaint:: PT C/O CCC AND SHE THINKS SHE MAY BE GETTING A MIGRAINE.. - Reviewed Nurses Notes Reviewed: Yes - Source History Provided: Patient - Mode of Arrival Mode of Arrival: Ambulatory - Timing Onset of Chief Complaint: 05/25/17 PMH - PMH Past Medical History: Yes Past Medical History: Anxiety, Depression, Diabetes, Migraines, Headaches, Hypertension Past Surgical History: Yes Surgical History: , Cholecystectomy, 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, Tonsillectomy - Family History History of Family Medical Conditions: Yes Family Medical History: Diabetes Mellitus, Cancer, Coronary Artery Disease, Hypertension - Social History Does patient currently use any type of tobacco product: No Have you used tobacco products in the last 12 months: Yes Type of Tobacco Use: Cigarettes Does any household member use tobacco: No Alcohol Use: None Do you use any recreational Drugs:: No Lives With: Family Lives Where: Home - infectious screening In the last 2 months have you had wt loss of >10#?: NO Have you had fever, night sweats or hemotysis?: No Have you traveled outside the country in the last 6 months?: No Isolation: Standard ROS - Review of Systems Constitutional: Fever Eyes: No Symptoms Reported ENTM: Nose Congestion Respiratoy: No Symptoms Reported, Productive Cough. negative: See HPI, Orthopnea, Short of Breath Cardiovascular: No Symptoms Reported Gastrointestinal/Abdominal: No Symptoms Reported Genitourinary: No Symptoms Reported Neurological: No Symptoms Reported Musculoskeletal: No Symptoms Reported Integumentary: No Symptoms Reported Hematologic/Lymphatic: No Symptoms Reported Endocrine: No Symptoms Reported Psychiatric: No Symptoms Reported All Other Systems: Reviewed and Negative PE - Vital Signs Vitals: Temperature 97.8 F Pulse Rate 129 Respiratory Rate 20 Blood Pressure [Right Arm] 121/68 Blood Pressure [Left Arm] 133/85 Blood Pressure 137/100 O2 Sat by Pulse Oximetry 96 - General Limitations: No Limitations General Appearance: Alert, In No Apparent Distress - Head Head Exam: Normal Inspection - Eyes Eye exam: Normal Appearance - ENT ENT Exam: Normal Exam - Neck Neck Exam: Normal Inspection - Chest Chest Inspection: Normal Inspection - Respiratory Respiratory Exam: Normal Lung Sounds Bilat - Cardiovascular Cardiovascular Exam: Regular Rate, Normal Rhythm - Abdominal Exam Abdominal Exam: Normal Inspection - Extremities Extremities Exam: Normal Inspection - Back Back Exam: Normal Inspection - Neurologic Neurological Exam: Alert, Oriented X3, CN II-XII Intact - Psychiatric Psychiatric Exam: Normal Affect, Normal Mood - Skin Skin Exam: Warm, Dry, Intact, Normal Color Course - Reevaluation 1st: Unchanged - Education/Counseling Education/Counseling: Patient Educated On: Treatment, Diagnosis, Prognosis, Needs for Follow Up ROR - Labs Reviewed Laboratory: Influenza Type A (PCR) Negative (NEGATIVE) 05/26/17 09:42 Influenza Type B (PCR) Negative (NEGATIVE) 05/26/17 09:42 Streptococcus Screen Negative (NEGATIVE) 05/26/17 09:42 - Diagnosis Discharge Problem: Upper respiratory infection - Discharge Plan Disposition: HOME, SELF-CARE Condition: Stable - Follow ups/Referrals Follow ups/Referrals: KALE BARNETT [Primary Care Provider] - 3 days - Instructions
[2017-05-26] MEDS ORDERED: TORADOL 60 MG VIAL ONE (09:39)
== END 2017-05-26 10:52 | disposition home or self-care (01) ==
LOC: ER 07:58
DX: J06.9 Acute upper respiratory infection, unspecified (principal); B95.61 Methicillin susceptible Staphylococcus aureus infection as the cause of diseases classified elsewhere
CPT/HCPCS: 87070; 87077; 87186; 87502; 87880; 99282; J1885

== ENCOUNTER 2017-11-03 21:29 | Emergency (ER) | payer OTHER ==
[2017-11-03 21:41] VITALS: BP 141/70; BMI 33.3
--- NOTE | 2017-11-03 21:59 | DR.GENAD ---
HPI - PCP Primary Care Physician: NFHank - Complaint/Symptoms Chief Complaint:: COME FROM [facility] CHEST PAIN - Nurses notes reviewed Nurses Notes Review: Yes - Source History Provided: Patient - Mode of Arrival Mode of Arrival: EMS - Timing Onset of Chief Complaint: 11/03/17 PMH - PMH Past Medical History: Yes Past Medical History: Anxiety, Depression, Diabetes, Migraines, Headaches, Hypertension Past Surgical History: Yes Surgical History: , Cholecystectomy, 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, Tonsillectomy - Family History History of Family Medical Conditions: Yes Family Medical History: Diabetes Mellitus, Cancer, Coronary Artery Disease, Hypertension - Social History Does patient currently use any type of tobacco product: No Have you used tobacco products in the last 12 months: No Type of Tobacco Use: None Do you use any recreational Drugs:: No - infectious screening In the last 2 months have you had wt loss of >10#?: NO Have you had fever, night sweats or hemotysis?: No Have you traveled outside the country in the last 6 months?: No Isolation: Standard PE - Vital Signs Vitals: Temperature 99.6 F Pulse Rate 105 Respiratory Rate 18 Blood Pressure [Right Arm] 121/68 Blood Pressure [Left Arm] 133/85 Blood Pressure 141/70 O2 Sat by Pulse Oximetry 98 Course - Treatment Treatment: DO NOT WISH TO BE EVALUATED. SHE SIGN AMA. - Discharge Plan Disposition: 07 AGAINST MEDICAL ADVICE Condition: Stable - Follow ups/Referrals Follow ups/Referrals: NFD,None [Primary Care Provider] - 3 days - Instructions
== END 2017-11-03 22:20 | disposition left against medical advice (07) ==
LOC: ER 21:34
DX: R07.89 Other chest pain (principal); I10 Essential (primary) hypertension; F41.9 Anxiety disorder, unspecified; E11.9 Type 2 diabetes mellitus without complications
CPT/HCPCS: 99281; 99282